=== PATIENT | female | born 1940 | race Caucasian/White ===

== ENCOUNTER 2016-07-22 07:21 | Inpatient (IN) | payer MEDICARE, OTHER ==
[2016-07-09 10:15] VITALS: BP 146/67
[~2016-07-22] VITALS: Ht 165.1 cm; Wt 73.0 kg
[~2016-07-22 07:21] MED LIST: /PANT40TA; ACIP20TA5 PO; AMOX500T PO; CARA1SUS; CLIMARA; COUM2.5T11 PO; GAVISUS2 PO; HYDR12.55 PO; HYDR25TA6; LOPR50TA; LOSA100T36 PO; METO10TA2; METO5TAB2; NUCY50TA9 PO; PROT20TA11; REGL10TA6 PO; SUCR1SS PO; TYLE325T5 PO; VAGI10TA VA; VAGIFEM PV; VERA180C PO; VITA200015 PO; [UNRECOGNIZED DRUG - CODE] TD; [UNRECOGNIZED DRUG - OTHER]
[2016-07-22] MEDS ORDERED: LR 1,000 ML IV SCH ×4 (08:15→11:30)
[2016-07-22] MEDS ORDERED: fentaNYL 100 MCG/2 ML INJECTION (J3010) As Ordered ONE ×3 (08:41→10:01)
[2016-07-22] MEDS ORDERED: MIDAZOLAM INJ 2 MG/2 ML VIAL (J2250) As Ordered ONE ×2 (08:41→10:02)
[2016-07-22] MEDS: MIDAZOLAM INJ 2 MG/2 ML VIAL (J2250) IV PRN ×2 (09:01→09:03)
[2016-07-22] MEDS ORDERED: BUPIVACAINE HCL 0.25% 30 ML VIAL As Ordered ONE (09:17)
[2016-07-22] MEDS ORDERED: ceFAZolin 1GM INJ (J0690) As Ordered ONE (09:17)
[2016-07-22] MEDS ORDERED: TRANEXAMIC ACID 100 MG/ML 10ML VIAL As Ordered ONE (09:17)
[2016-07-22] MEDS ORDERED: BUPIVACAINE HCL 0.5% 10 ML VIAL As Ordered ONE (09:17)
[2016-07-22] MEDS ORDERED: EPINEPHrine INJ 1 MG/ML 1ML VIAL/AMP As Ordered ONE (09:18)
[2016-07-22] MEDS ORDERED: fentaNYL 100 MCG/2 ML INJECTION (J3010) IV PRN ×2 (09:30→11:30)
[2016-07-22] MEDS ORDERED: PROPOFOL 200 MG/20 ML VIAL As Ordered ONE ×2 (10:01→10:02)
[2016-07-22] MEDS ORDERED: LIDOCAINE 2% INJ 100 MG/5 ML SDV (FOR ANES.) As Ordered ONE (10:02)
[2016-07-22] MEDS ORDERED: ceFAZolin 1GM INJ (J0690) IR ONE (10:11)
[2016-07-22] MEDS ORDERED: fentaNYL 100 MCG/2 ML INJECTION (J3010) XX ONE (10:11)
[2016-07-22] MEDS ORDERED: BUPIVACAINE HCL 0.25% 30 ML VIAL XX ONE (10:11)
[2016-07-22] MEDS ORDERED: TRANEXAMIC ACID 100 MG/ML 10ML VIAL XX ONE (10:11)
[2016-07-22] MEDS ORDERED: BUPIVACAINE HCL 0.5% 10 ML VIAL XX ONE (10:11)
[2016-07-22] MEDS ORDERED: EPINEPHrine INJ 1 MG/ML 1ML VIAL/AMP XX ONE (10:11)
[2016-07-22] MEDS ORDERED: ePHEDrine SULFATE 25 MG/5 ML(5MG/ML) SYRINGE As Ordered ONE (10:20)
[2016-07-22] MEDS ORDERED: LIDOCAINE 1% MDV 20ML VIAL ONE (10:48)
[2016-07-22] MEDS ORDERED: MEPIVACAINE HCL 1.5% 30 ML VIAL (J0670) ONE (10:48)
[2016-07-22] MEDS ORDERED: dexameTHASONE 10 MG/1 ML VIAL PRES.FREE (J1100) ONE (10:48)
[2016-07-22] MEDS ORDERED: ROPIvacaine 0.5% 30 ML INJECTION (J2795) ONE (10:48)
[2016-07-22] MEDS ORDERED: MORPHINE PCA 1MG/ML 100ML CADD As Ordered ONE (11:23)
[2016-07-22] MEDS ORDERED: PATIENT IS CURRENTLY ON AN ON-Q PAIN BUSTER PAIN RELIEF SYSTEM XX SCH (11:30)
[2016-07-22] MEDS ORDERED: MORPHINE PCA 1MG/ML 100ML CADD IV PRN (11:30)
[2016-07-22] MEDS ORDERED: D5W/0.45% SODIUM CHLORIDE 500 ML IV SCH (11:30)
[2016-07-22] MEDS ORDERED: PERCOCET 5MG/325MG TAB PO PRN (11:30)
[2016-07-22] MEDS ORDERED: NALBUPHINE HCL 10 MG/ML AMP (J2300) IV PRN (11:30)
[2016-07-22] MEDS ORDERED: EPIDURAL/PCA KEYS XX PRN (11:30)
[2016-07-22] MEDS ORDERED: METOCLOPRAMIDE INJ 10MG/2ML VIAL (J2765) IV PRN (11:30)
[2016-07-22] MEDS ORDERED: diphenhydrAMINE INJ 50MG/ML VIAL (J1200) IV PRN (11:30)
[2016-07-22] MEDS ORDERED: ONDANSETRON 4MG/2ML VIAL (J2405) IV PRN ×2 (11:30)
[2016-07-22] MEDS ORDERED: NALOXONE INJ 0.4 MG/1 ML VIAL (J2310) IV PRN (11:30)
[2016-07-22] MEDS ORDERED: ACETAMINOPHEN TAB 650MG DOSE (2X325MG) PO PRN (11:45)
[2016-07-22] MEDS ORDERED: FLEET ENEMA PR PRN (11:45)
[2016-07-22 14:30] VITALS: BP 163/74
[2016-07-22] MEDS: D5W/0.45% SODIUM CHLORIDE 1,000 ML IV SCH ×2 (15:46→23:36)
--- NOTE | 2016-07-22 17:04 | HPEPDOC ---
Medical History and Physical Date of Admission Jul 22, 2016 at 07:21 History and Physical HOSPITALIST CONSULT NOTE Date of consult: 07/22/2016 Referring Provider: Dr. Khanna Reason for Consult: Management of chronic medical conditions HPI: 75y/o female with hypertension, GERD, IBS who underwent right total knee replacement with Dr. Khanna today. We have been asked to see the patient for management of her chronic medical conditions. The patient was seen on fifth floor [place] after her surgery. She states she is feeling well and has no complaints. She does note, that on a prior surgery, she had a lot of GI issues afterwards, and her primary doctor suggested she start taking Reglan prior to the surgery. She states that she would like to continue the Reglan at this time , and is not currently experiencing any GI upset like her last surgery. 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 She lives with her , and has never smoked. She states that she drinks approximately 1 alcoholic drink a week. Allergies: Alendronate, esomeprazole, lansoprazole, lisinopril, opiates, omeprazole, ranitidine, isradipine Review of systems: General: Negative for fever and chills Eyes:. Negative for Vision changes and ocular discharge ENT: Negative for sore throat and nose bleed Cardiovascular: Negative for chest pain and palpitations Respiratory: Negative for cough and shortness of breath GI: Negative for nausea and vomiting. Positive for chronic alternation between diarrhea and constipation secondary to her IBS. She states that this is currently at her baseline. Musculoskeletal: Positive for chronic back pain Skin: Negative for rash Neuro: Negative for headache, dizziness, numbness, tingling Psych: Negative for depression and suicidal ideation Endocrine: Negative for polyuria : Negative for dysuria Heme: Negative for bruising and bleeding Home meds: See below Physical exam: Vital signs: Blood pressure 163/74, HR 72, temperature 97.9, O2 sat 95% on room air, RR 18 Gen.: awake, alert, no acute distress Eyes: Extraocular movements intact, normal sclera ENT: Moist mucous membranes Cardiovascular: RRR, no murmurs rubs or gallops Lungs: clear to auscultation bilaterally, no rales, rhonchi, or wheeze Abdomen: Soft, NT/ND, normal BS Extremities: No peripheral edema, pedal pulses intact bilat Neuro: alert and oriented 3, normal speech, no focal deficits Psych: Normal mood with congruent affect Labs and radiology: none to review Assessment and plan: 75y/o female with hypertension, GERD, IBS who underwent right total knee replacement with Dr. Khanna today. We have been asked to see the patient for management of her chronic medical conditions. 1. Osteoarthritis: Patient underwent right total knee replacement today. Management will be per Dr. Khanna. 2. Hypertension: We will resume the patient's home losartan, verapamil, and hydrochlorothiazide. 3. GERD: The patient states that at baseline, the only medicine she takes regularly is AcipHex. We will resume her home AcipHex and allow her to take her home supply as this is not formulary. The patient states that she only takes the Carafate when her GERD is flaring up, and she does not feel that she currently needs it. She does state though, that she has been taking Reglan 5 mg twice a day in anticipation of the surgery, and would like to continue that at this time. DVT prophylaxis: As per the primary team Thank you for this consult. We will continue to follow along with you. Dr. Sanders will assume care of this patient tomorrow. Vital Signs see above Home Medications Scheduled (Gaviscon Extra Strength R 508-475 mg/10Ml) 1 Katerina Katerina 1 TBS PO PRN Amoxicillin (Amoxicillin) 500 Mg Tab 2,000 MG PO PRN Cholecalciferol (Vitamin D) 2,000 Unit Tab 14,000 UNIT PO QWEEK Estradiol (Climara) 0.1 Mg/24 Hr Dis 0.2 MG TD QWEEK Estradiol Hemihydrate (Vagifem) 10 Mcg Tab 10 MCG VA Q2D Hydrochlorothiazide (Hydrochlorothiazide) 12.5 Mg Tab 12.5 MG PO DAILY Losartan Potassium (Losartan Potassium) 100 Mg Tab 100 MG PO QHS Metoclopramide HCl (Reglan) 10 Mg Tab 10 MG PO DAILY Rabeprazole Sodium (Aciphex) 20 Mg Tab 20 MG PO DAILY Sucralfate (Carafate) 1 Gm/10 Ml Katerina 2 TBS PO ACP Verapamil HCl (Verapamil HCl ER) 180 Mg Cap 180 MG PO BID Scheduled PRN Acetaminophen (Tylenol) 325 Mg Tab 650 MG PO Q4HP PRN PRN MILD PAIN or TEMP > 100.4 Allergies Coded Allergies: Lisinopril (Verified Allergy, Severe, angioedema and chest pain, 07/09/16) Alendronate (Verified Allergy, Unknown, 10/12/12) Esomeprazole (Verified Allergy, Unknown, 10/12/12) Isradipine (Verified Allergy, Unknown, 10/12/12) Lansoprazole (Verified Allergy, Unknown, ZEGERID TOO, 10/12/12) Omeprazole (Verified Allergy, Unknown, 10/12/12) Ranitidine (Verified Allergy, Unknown, 10/12/12) Uncoded Allergies: OPIATES (Allergy, Mild, 07/09/16) MG ESCOBAR Jul 22, 2016 17:04
[2016-07-22] MEDS ORDERED: SUCRALFATE 1 GM TAB PO SCH (17:30)
[2016-07-22 18:00] VITALS: BP 172/78
--- NOTE | 2016-07-22 18:49 | RO ---
DATE OF PROCEDURE: 07/22/2016 PREOPERATIVE DIAGNOSIS: Right knee osteoarthritis. POSTOPERATIVE DIAGNOSIS: Right knee osteoarthritis. OPERATION PERFORMED: Right total knee replacement. SURGEON: Dr. Ramesh Khanna ACCOUNTS RECEIVABLE PROCESSOR: RUTH Bateman HISTORY: A 75-year-old female who has had her left knee done, now with increasing pain in her right knee, for elective total knee replacement. FINDINGS AT SURGERY: Severe osteoarthritis, most involved were deep grooves in the patellofemoral joint. At surgery, a #3 PFC knee, a #3 tibia, a 10 mm spacer fixed bearing and a 32 mm button were replaced. Tourniquet time was 46 minutes. No intraoperative complications noted. Mr. Mary assisted by retracting vital structures and manipulating the leg to expedite the procedure. DESCRIPTION OF PROCEDURE: After adequate spinal anesthesia, a Bello catheter placed, IV antibiotics were administered and the right leg prepped and draped. Tourniquet inflated to 275 mmHg. An anterior incision made, median parapatellar arthrotomy was fashioned and osteophytes removed and the knee exposed. The intermedullary canal was opened. A 5 degree valgus 10 mm cut made off the distal femur by Mr. Mary under my supervision. I made the rest of the femoral cuts and osteophytes were removed and the tibia was exposed. The tibial cut made 4 mm off the medial side. Then menisci were excised. There were no posterior osteophytes to deal with. The posterior cruciate was in good shape and a 10 mm sizing guide showed good fit flexion/extension. Following this, the patella was everted and cut. Rotation checked and marked with the components. The femoral drill holes were applied. No lateral release was necessary. The tibial preparation was completed. Mr. Mary excused to the back table to mix methylmethacrylate under vacuum while I thoroughly irrigated the bone and dried it in preparation for cementing. The components were then malleted into place. Excess cement was removed, and the tibial component snapped into place. The knee placed in full extension while the patella was clamped. Then the knee once again thoroughly irrigated. TXA was instilled into the wound. A PainBuster catheter was threaded into the knee superolaterally. Then, the median parapatellar arthrotomy closed with heavy PDS suture. Tenosynovium closed with #2-0 PDS. [place] for skin. Dry dressing applied. Tourniquet deflated at 46 minutes. No intraoperative complications noted. The patient transported to the recovery room.
[2016-07-22] MEDS: VERAPAMIL 180 MG SR TAB PO SCH (20:21)
[2016-07-22] MEDS: LOSARTAN 50 MG TAB PO SCH (20:22)
[2016-07-22] MEDS: METOCLOPRAMIDE 10 MG TAB PO SCH (20:22)
[2016-07-22] MEDS ORDERED: WARFARIN SOD 5 MG TAB PO ONE (21:00)
[2016-07-22 22:00] VITALS: BP 162/77
[2016-07-23 02:00] VITALS: BP 136/74
[2016-07-23 06:00] VITALS: BP 140/66
[2016-07-23] MEDS: ACETAMINOPH W/CODEINE #3 TAB UD PO PRN ×3 (06:44→17:51)
[2016-07-23] MEDS: ONDANSETRON 4 MG TAB (S0181) PO PRN ×2 (06:44→12:17)
[2016-07-23 06:57] LABS: INR 2.13
[2016-07-23 07:05] LABS: BASO % 0.1 % (0.0-1.0); LARGE UNSTAINED CELL # 0.1 K/mm3 (0.0-0.4); LYMPH # 1.2 K/mm3 (1.5-4.5); LYMPH % 8.7 % (24.0-44.0); MEAN CORPUSCULAR HEMOGLOBIN 30.9 pg (27.0-33.0); MEAN CORPUSCULAR HGB CONC 33.3 g/dl (32.0-36.5); MEAN CORPUSCULAR VOLUME 92.8 fl (80.0-96.0); MONO # 0.6 K/mm3 (0.0-0.8); MONO % 4.1 % (0.0-5.0); NEUTROPHILS % 86.2 % (36.0-66.0); PLATELET COUNT, AUTOMATED 295 k/mm3 (150-450); RED CELL DISTRIBUTION WIDTH 12.5 % (11.5-14.5)
[2016-07-23 07:14] LABS: ANION GAP 10 MEQ/L (8-16); BLOOD UREA NITROGEN 9 MG/DL (7-18); CALCIUM LEVEL 8.6 MG/DL (8.8-10.2); CARBON DIOXIDE LEVEL 26 MEQ/L (21-32); CHLORIDE LEVEL 103 MEQ/L (98-107); CREATININE FOR GFR 0.63 MG/DL (0.55-1.02); GLOMERULAR FILTRATION RATE > 60.0 (>39); GLUCOSE, FASTING 136 MG/DL (83-110); MAGNESIUM LEVEL 1.8 MG/DL (1.8-2.4); POTASSIUM SERUM 4.2 MEQ/L (3.5-5.1); SODIUM LEVEL 139 MEQ/L (136-145)
[2016-07-23] MEDS ORDERED: METOCLOPRAMIDE 10 MG TAB PO SCH (09:00)
[2016-07-23] MEDS: MOM 30ML SUSPENSION UDC PO SCH (09:17)
--- NOTE | 2016-07-23 09:17 | REP ---
Clinical: Status post arthroplasty. Technique: AP and cross-table lateral views. Findings: The patient is status post right knee replacement with normal positioning and appearance to the femoral and tibial components. Overlying postsurgical changes appreciated. Impression: Satisfactory right knee replacement radiographs. Signed by Carlos Bansal MD 07/23/2016 09:09 A
[2016-07-23] MEDS: MIRALAX *UNIT DOSE* 17GM PACKET PO SCH (09:18)
[2016-07-23] MEDS: VERAPAMIL 180 MG SR TAB PO SCH ×2 (09:18→20:55)
[2016-07-23] MEDS: METOCLOPRAMIDE 10 MG TAB PO SCH ×2 (09:18→20:54)
[2016-07-23] MEDS: SENOKOT S TAB PO SCH ×2 (09:19→20:54)
[2016-07-23] MEDS: RABEPRAZOLE 20 MG PO SCH (09:19)
[2016-07-23] MEDS: hydroCHLOROthiazide 12.5 MG CAPSULE PO SCH (09:19)
[2016-07-23 14:00] VITALS: BP 153/67
--- NOTE | 2016-07-23 16:43 | IPNPDOC ---
Text Note Date of Service The patient was seen on 07/23/16 at 16:38. NOTE Subjective: Patient stat denies any complaints. Denies chest pain/shortness of breath/palpitations. Es Objective: Vitals: (see below) General: No acute distress, laying comfortably in bed. HEENT: Moist mucous membranes. Neck: No JVD or lymphadenopathy Cardiac: RRR, No murmurs Pulm: Clear to auscultation b/l. No wheezing, rhonchi Abd: NT/ND + BS Ext: No cyanosis. Right knee wrapped, with distal pulses intact. Minimal edema. No hemorrhage. Labs (see below) Images: X-ray of right knee 07/22/16 Impression: Satisfactory right knee replacement radiographs. Assessment/Plan 1. Severe osteoarthritis status post right total knee replacement on 07/22/[address] Khanna. Pain management and DVT prophylaxis per Dr. Khanna. 2. Hypertension- controlled, continue home meds. 3. GERD- cont home meds. DVT prophy: Per orthopedics VS,Marshal, I+O VS, Marshal, I+O Laboratory Tests 07/23/16 06:08 Calcium Level 8.6 L, Red Blood Count 3.79 L, Mean Corpuscular Volume 92.8, Mean Corpuscular Hemoglobin 30.9, Mean Corpuscular Hemoglobin Concent 33.3, Red Cell Distribution Width 12.5, Neutrophils (%) (Auto) 86.2 H, Lymphocytes (%) (Auto) 8.7 L, Monocytes (%) (Auto) 4.1, Eosinophils (%) (Auto) 0.0, Basophils (%) (Auto ) 0.1, Neutrophils # (Auto) 12.0 H, Lymphocytes # (Auto) 1.2 L, Monocytes # ( Auto) 0.6, Eosinophils # (Auto) 0.0, Basophils # (Auto) 0.0 Vital Signs Date Time Temp Pulse Resp B/P Pulse Ox O2 Delivery O2 Flow Rate FiO2 07/23/16 14:00 98.1 73 18 153/67 92 Room Air 07/23/16 05:26 2.0 I&O- Last 24 Hours up to 6 AM 07/23/16 06:00 Intake Total 1260 ml Output Total 3750 ml Balance -2490 ml JOSR FOFANA MD Jul 23, 2016 16:43
[2016-07-23] MEDS ORDERED: WARFARIN SOD 5 MG TAB PO ONE (17:00)
[2016-07-23] MEDS: LOSARTAN 50 MG TAB PO SCH (20:53)
[2016-07-23 22:00] VITALS: BP 186/79
[2016-07-24] MEDS: ACETAMINOPH W/CODEINE #3 TAB UD PO PRN ×4 (03:04→21:06)
[2016-07-24 06:00] VITALS: BP 164/77
[2016-07-24 06:43] LABS: BASO % 0.2 % (0.0-1.0); EOS # 0.1 K/mm3 (0.0-0.50); EOS % 0.7 % (0.0-3.0); LARGE UNSTAINED CELL # 0.2 K/mm3 (0.0-0.4); LARGE UNSTAINED CELL % 1.7 % (0.0-4.0); LYMPH # 2.4 K/mm3 (1.5-4.5); LYMPH % 21.9 % (24.0-44.0); MEAN CORPUSCULAR HEMOGLOBIN 30.9 pg (27.0-33.0); MEAN CORPUSCULAR HGB CONC 33.8 g/dl (32.0-36.5); MEAN CORPUSCULAR VOLUME 91.4 fl (80.0-96.0); MONO # 0.6 K/mm3 (0.0-0.8); MONO % 5.7 % (0.0-5.0); NEUTROPHILS # 7.7 K/mm3 (1.8-7.7); NEUTROPHILS % 69.8 % (36.0-66.0); PLATELET COUNT, AUTOMATED 264 k/mm3 (150-450); RED CELL DISTRIBUTION WIDTH 12.6 % (11.5-14.5); WHITE BLOOD COUNT 11.1 K/mm3 (4.0-10.0)
[2016-07-24 06:49] LABS: INR 2.54
[2016-07-24 06:53] LABS: ANION GAP 8 MEQ/L (8-16); BLOOD UREA NITROGEN 15 MG/DL (7-18); CALCIUM LEVEL 8.3 MG/DL (8.8-10.2); CARBON DIOXIDE LEVEL 28 MEQ/L (21-32); CHLORIDE LEVEL 104 MEQ/L (98-107); CREATININE FOR GFR 0.56 MG/DL (0.55-1.02); GLOMERULAR FILTRATION RATE > 60.0 (>39); GLUCOSE, FASTING 90 MG/DL (83-110); POTASSIUM SERUM 3.8 MEQ/L (3.5-5.1); SODIUM LEVEL 140 MEQ/L (136-145)
[2016-07-24] MEDS: MIRALAX *UNIT DOSE* 17GM PACKET PO SCH (09:00)
[2016-07-24] MEDS: MOM 30ML SUSPENSION UDC PO SCH (09:41)
[2016-07-24] MEDS: SENOKOT S TAB PO SCH ×2 (09:44→21:00)
[2016-07-24] MEDS: VERAPAMIL 180 MG SR TAB PO SCH ×2 (09:44→21:09)
[2016-07-24] MEDS: hydroCHLOROthiazide 12.5 MG CAPSULE PO SCH (09:44)
[2016-07-24] MEDS: RABEPRAZOLE 20 MG PO SCH (09:45)
[2016-07-24] MEDS: METOCLOPRAMIDE 10 MG TAB PO SCH ×2 (09:45→21:09)
[2016-07-24 14:00] VITALS: BP 114/54
--- NOTE | 2016-07-24 17:15 | IPNPDOC ---
Text Note Date of Service The patient was seen on 07/24/16 at 17:15. NOTE Subjective: Patient denies any complaints. Es Objective: Vitals: (see below) General: No acute distress, laying comfortably in bed. HEENT: Moist mucous membranes. Neck: No JVD or lymphadenopathy Cardiac: RRR, No murmurs Pulm: Clear to auscultation b/l. No wheezing, rhonchi Abd: NT/ND + BS Ext: No cyanosis. Right knee wrapped, with distal pulses intact. Minimal edema. No hemorrhage. Labs (see below) Images: X-ray of right knee 07/22/16 Impression: Satisfactory right knee replacement radiographs. Assessment/Plan 1. Severe Osteoarthritis status post right total knee replacement on 07/22/[address] Khanna. Pain management and DVT prophylaxis per Dr. Khanna. 2. Hypertension- uncontrolled, continue home meds. Hydralazine added 3. GERD- cont home meds. DVT prophy: Per orthopedics VS,Fishbone, I+O VS, Fishbone, I+O Laboratory Tests 07/24/16 06:07 Calcium Level 8.3 L, Red Blood Count 3.43 L, Mean Corpuscular Volume 91.4, Mean Corpuscular Hemoglobin 30.9, Mean Corpuscular Hemoglobin Concent 33.8, Red Cell Distribution Width 12.6, Neutrophils (%) (Auto) 69.8 H, Lymphocytes (%) (Auto) 21.9 L, Monocytes (%) (Auto) 5.7 H, Eosinophils (%) (Auto) 0.7, Basophils (%) ( Auto) 0.2, Neutrophils # (Auto) 7.7, Lymphocytes # (Auto) 2.4, Monocytes # (Auto ) 0.6, Eosinophils # (Auto) 0.1, Basophils # (Auto) 0.0 Vital Signs Date Time Temp Pulse Resp B/P Pulse Ox O2 Delivery O2 Flow Rate FiO2 07/24/16 14:43 18 98 07/24/16 14:00 99.6 68 114/54 Room Air 07/23/16 05:26 2.0 I&O- Last 24 Hours up to 6 AM 07/24/16 06:00 Intake Total 2030 ml Balance 2030 ml JOSR FOFANA MD Jul 24, 2016 17:15
[2016-07-24] MEDS: LOSARTAN 50 MG TAB PO SCH (21:10)
[2016-07-24] MEDS: **hydrALAZINE HCL** 25 MG TAB PO SCH (21:11)
[2016-07-24 22:00] VITALS: BP 136/60
[2016-07-25 06:00] VITALS: BP 126/59
[2016-07-25 06:58] LABS: BASO % 0.3 % (0.0-1.0); EOS # 0.2 K/mm3 (0.0-0.50); EOS % 1.6 % (0.0-3.0); LARGE UNSTAINED CELL # 0.2 K/mm3 (0.0-0.4); LARGE UNSTAINED CELL % 1.9 % (0.0-4.0); LYMPH # 2.8 K/mm3 (1.5-4.5); LYMPH % 24.4 % (24.0-44.0); MEAN CORPUSCULAR HEMOGLOBIN 30.3 pg (27.0-33.0); MEAN CORPUSCULAR HGB CONC 32.6 g/dl (32.0-36.5); MEAN CORPUSCULAR VOLUME 92.9 fl (80.0-96.0); MONO # 0.5 K/mm3 (0.0-0.8); MONO % 4.6 % (0.0-5.0); NEUTROPHILS # 7.7 K/mm3 (1.8-7.7); NEUTROPHILS % 67.1 % (36.0-66.0); PLATELET COUNT, AUTOMATED 291 k/mm3 (150-450); RED CELL DISTRIBUTION WIDTH 12.5 % (11.5-14.5); WHITE BLOOD COUNT 11.5 K/mm3 (4.0-10.0)
[2016-07-25 07:10] LABS: INR 1.68
[2016-07-25 07:27] LABS: ANION GAP 6 MEQ/L (8-16); BLOOD UREA NITROGEN 19 MG/DL (7-18); CALCIUM LEVEL 8.5 MG/DL (8.8-10.2); CARBON DIOXIDE LEVEL 32 MEQ/L (21-32); CHLORIDE LEVEL 101 MEQ/L (98-107); CREATININE FOR GFR 0.73 MG/DL (0.55-1.02); GLOMERULAR FILTRATION RATE > 60.0 (>39); GLUCOSE, FASTING 101 MG/DL (83-110); MAGNESIUM LEVEL 2.2 MG/DL (1.8-2.4); POTASSIUM SERUM 3.9 MEQ/L (3.5-5.1); SODIUM LEVEL 139 MEQ/L (136-145)
[2016-07-25] MEDS ORDERED: ACET30TAB PO (07:36)
[2016-07-25] MEDS: MIRALAX *UNIT DOSE* 17GM PACKET PO SCH (09:00)
[2016-07-25] MEDS: METOCLOPRAMIDE 10 MG TAB PO SCH (09:22)
[2016-07-25] MEDS: MOM 30ML SUSPENSION UDC PO SCH (09:22)
[2016-07-25] MEDS: **hydrALAZINE HCL** 25 MG TAB PO SCH (09:23)
[2016-07-25] MEDS: hydroCHLOROthiazide 12.5 MG CAPSULE PO SCH (09:25)
[2016-07-25] MEDS: ACETAMINOPH W/CODEINE #3 TAB UD PO PRN ×2 (09:25→14:28)
[2016-07-25] MEDS: SENOKOT S TAB PO SCH (09:25)
[2016-07-25 09:26] VITALS: BP 126/59
[2016-07-25] MEDS: VERAPAMIL 180 MG SR TAB PO SCH (09:26)
[2016-07-25] MEDS: RABEPRAZOLE 20 MG PO SCH (09:27)
[2016-07-25] MEDS ORDERED: HYDR25TA PO (10:52)
[2016-07-25 14:00] VITALS: BP 107/53
--- NOTE | 2016-07-25 17:21 | IPNPDOC ---
Text Note Date of Service The patient was seen on 07/25/16 at 17:19. NOTE Subjective: Patient denies any complaints. Would like to go home today. Objective: Vitals: (see below) General: No acute distress, laying comfortably in bed. HEENT: Moist mucous membranes. Neck: No JVD or lymphadenopathy Cardiac: RRR, No murmurs Pulm: Clear to auscultation b/l. No wheezing, rhonchi Abd: NT/ND + BS Ext: No cyanosis. Right knee with minimal swelling, with distal pulses intact. No hemorrhage. Labs (see below) Images: X-ray of right knee 07/22/16 Impression: Satisfactory right knee replacement radiographs. Assessment/Plan 1. Severe Osteoarthritis status post right total knee replacement on 07/22/[address] Khanna. Pain management and DVT prophylaxis per Dr. Khanna. 2. Hypertension- controlled, continue home meds. Hydralazine prescription sent to the pharmacy. Patient will check her blood pressure home, and if it appears to be low, she will only take her hydralazine once daily. She will also be following up with a primary care physician. 3. GERD- cont home meds. DVT prophy: Per orthopedics VS,Marshal, I+O VS, Marshal, I+O Laboratory Tests 07/25/16 06:34 Calcium Level 8.5 L, Red Blood Count 3.53 L, Mean Corpuscular Volume 92.9, Mean Corpuscular Hemoglobin 30.3, Mean Corpuscular Hemoglobin Concent 32.6, Red Cell Distribution Width 12.5, Neutrophils (%) (Auto) 67.1 H, Lymphocytes (%) (Auto) 24.4, Monocytes (%) (Auto) 4.6, Eosinophils (%) (Auto) 1.6, Basophils (%) (Auto ) 0.3, Neutrophils # (Auto) 7.7, Lymphocytes # (Auto) 2.8, Monocytes # (Auto) 0.5, Eosinophils # (Auto) 0.2, Basophils # (Auto) 0.0 Vital Signs Date Time Temp Pulse Resp B/P Pulse Ox O2 Delivery O2 Flow Rate FiO2 07/25/16 14:58 18 98 07/25/16 14:00 99.0 73 107/53 Room Air 07/23/16 05:26 2.0 I&O- Last 24 Hours up to 6 AM 07/25/16 06:00 Intake Total 720 ml Output Total 350 ml Balance 370 ml JOSR FOFANA MD Jul 25, 2016 17:21
== END 2016-07-25 15:10 | disposition home health service (06) | DRG 470 ==
LOC: M OR 07:21 → M MS5PR 14:30
PROVIDERS: ADMIT Orthopaedic Surgery; ATTEND Orthopaedic Surgery
PROC: 0SRC0J9 Replacement of Right Knee Joint with Synthetic Substitute, Cemented, Open Approach (ICD-10-PCS; principal; 2016-07-22 09:00)
DX: M17.11 Unilateral primary osteoarthritis, right knee (principal); I10 Essential (primary) hypertension; K21.9 Gastro-esophageal reflux disease without esophagitis; E55.9 Vitamin D deficiency, unspecified; K58.9 Irritable bowel syndrome, unspecified; E78.00 Pure hypercholesterolemia, unspecified; M81.0 Age-related osteoporosis without current pathological fracture; Z90.49 Acquired absence of other specified parts of digestive tract; Z96.653 Presence of artificial knee joint, bilateral; Z79.899 Other long term (current) drug therapy

== ENCOUNTER → 2016-07-31 | Outpatient (REF) | payer MEDICARE, OTHER ==
[~2016-07-31] MED LIST changes: +ACET30TAB PO; +HYDR25TA PO
== END ==
LOC: M SFHCPLAZ 08:31 → EEVIPCON 08:31
PROVIDERS: ATTEND Internal Medicine
DX: R30.0 Dysuria (principal)

== ENCOUNTER → 2016-08-05 | Outpatient (REF) | payer MEDICARE, OTHER ==
[2016-08-05 14:22] LABS: INR 1.66
== END ==
LOC: M LABDRAW1 12:58
PROVIDERS: ATTEND Orthopaedic Surgery
DX: Z47.1 Aftercare following joint replacement surgery (principal); Z79.01 Long term (current) use of anticoagulants

== ENCOUNTER → 2016-08-08 | Outpatient (REF) | payer MEDICARE, OTHER ==
[2016-08-08 18:07] LABS: INR 1.25
== END ==
LOC: M LAB REF 16:50
PROVIDERS: ATTEND Nurse Practitioner Family
DX: Z47.1 Aftercare following joint replacement surgery (principal); Z79.01 Long term (current) use of anticoagulants

== ENCOUNTER → 2016-08-12 | Outpatient (REF) | payer MEDICARE, OTHER ==
[2016-08-12 12:44] LABS: INR 2.18
== END ==
LOC: M LAB REF 11:46
PROVIDERS: ATTEND Nurse Practitioner Family
DX: Z47.1 Aftercare following joint replacement surgery (principal); Z79.01 Long term (current) use of anticoagulants

== ENCOUNTER → 2016-10-22 | Outpatient (CLI) | payer MEDICARE, OTHER ==
--- NOTE | 2016-10-22 10:47 | REPMRS ---
Patient History The patient states she had a clinical breast exam in 08/30 Patient is postmenopausal. Family history of breast cancer in niece at age 35. Benign excisional biopsy of the right breast, 1992. Taking estrogen for 14 years. Digital Woman Screen Mammo: October 22, 2016 - Exam #: [id number] Bilateral CC and MLO view(s) were taken. Technologist: Melissa Crowley, Technologist Prior study comparison: October 20, 2015, digital woman screen mammo performed at [facility]. October 14, 2014, digital woman screen mammo performed at [facility]. FINDINGS: The breast tissue is heterogeneously dense. This may lower the sensitivity of mammography. There has been no change in the appearance of the mammogram from the prior studies. There is a moderate amount of residual fibroglandular tissue which is fairly symmetric. There is no interval development of dominant mass, areas of architectural distortion, or clustered microcalcification typical of malignancy. ASSESSMENT: BI-RADS/ACR category 1 mammogram. Negative. Recommendation Routine screening mammogram in 1 year (for women over age 40). This mammogram was interpreted with the aid of an FDA-approved computer-aided dectection system. Electronically Signed By: Jeevan Yu MD 10/22/16 0792
== END ==
LOC: M WHC 09:31
PROVIDERS: ATTEND Obstetrics & Gynecology Gynecology
DX: Z12.31 Encounter for screening mammogram for malignant neoplasm of breast (principal)

== ENCOUNTER → 2016-12-17 | Outpatient (CLI) | payer MEDICARE, OTHER ==
[2016-12-17 09:19] LABS: MEAN CORPUSCULAR HEMOGLOBIN 29.8 pg (27.0-33.0); MEAN CORPUSCULAR VOLUME 90.3 fl (80.0-96.0); RED CELL DISTRIBUTION WIDTH 13.9 % (11.5-14.5); WHITE BLOOD COUNT 5.7 K/mm3 (4.0-10.0)
[2016-12-17 09:44] LABS: ALBUMIN 3.4 GM/DL (3.2-5.2); ALKALINE PHOSPHATASE 67 U/L (45-117); ALT/SGPT 17 U/L (12-78); ANION GAP 5 MEQ/L (8-16); AST/SGOT 14 U/L (15-37); BILIRUBIN,TOTAL 0.5 MG/DL (0.2-1.0); BLOOD UREA NITROGEN 15 MG/DL (7-18); CALCIUM LEVEL 9.1 MG/DL (8.8-10.2); CARBON DIOXIDE LEVEL 29 MEQ/L (21-32); CHLORIDE LEVEL 104 MEQ/L (98-107); CHOLESTEROL LEVEL 195 MG/DL (<200); CREATININE FOR GFR 0.68 MG/DL (0.55-1.02); GLOMERULAR FILTRATION RATE > 60.0 (>39); GLUCOSE, FASTING 86 MG/DL (83-110); POTASSIUM SERUM 4.4 MEQ/L (3.5-5.1); SODIUM LEVEL 138 MEQ/L (136-145); TOTAL PROTEIN 6.5 GM/DL (6.4-8.2); TRIGLYCERIDES LEVEL 152 MG/DL (<150)
== END ==
LOC: M LAB 09:00
PROVIDERS: ATTEND Internal Medicine
DX: K58.9 Irritable bowel syndrome, unspecified (principal); E78.00 Pure hypercholesterolemia, unspecified; I10 Essential (primary) hypertension

== ENCOUNTER → 2017-06-23 | Outpatient (CLI) | payer MEDICARE, OTHER ==
[~2017-06-23] MED LIST changes: +ACIP1TAB PO; -ACIP20TA5 PO; -COUM2.5T11 PO; +COUM2.5T17 PO; +NUCY50TA6 PO; -NUCY50TA9 PO
[2017-06-23 08:59] LABS: MEAN CORPUSCULAR HEMOGLOBIN 30.2 pg (27.0-33.0); MEAN CORPUSCULAR HGB CONC 33.5 g/dl (32.0-36.5); MEAN CORPUSCULAR VOLUME 90.2 fl (80.0-96.0); PLATELET COUNT, AUTOMATED 320 10^3/uL (150-450); RED CELL DISTRIBUTION WIDTH 14.3 % (11.5-14.5); WHITE BLOOD COUNT 5.4 10^3/uL (4.0-10.0)
[2017-06-23 09:36] LABS: ALBUMIN 3.7 GM/DL (3.2-5.2); ALBUMIN/GLOBULIN RATIO 1.09 (1.00-1.93); ALKALINE PHOSPHATASE 65 U/L (45-117); ALT/SGPT 18 U/L (12-78); ANION GAP 11 MEQ/L (8-16); AST/SGOT 20 U/L (7-37); BILIRUBIN,TOTAL 0.5 MG/DL (0.2-1.0); BLOOD UREA NITROGEN 18 MG/DL (7-18); CALCIUM LEVEL 9.1 MG/DL (8.8-10.2); CARBON DIOXIDE LEVEL 27 MEQ/L (21-32); CHLORIDE LEVEL 102 MEQ/L (98-107); CREATININE FOR GFR 0.78 MG/DL (0.55-1.02); GLOMERULAR FILTRATION RATE > 60.0 (>39); GLUCOSE, FASTING 90 MG/DL (83-110); MAGNESIUM LEVEL 1.7 MG/DL (1.8-2.4); POTASSIUM SERUM 3.5 MEQ/L (3.5-5.1); SODIUM LEVEL 140 MEQ/L (136-145); TOTAL PROTEIN 7.1 GM/DL (6.4-8.2)
== END ==
LOC: M LAB 08:39
PROVIDERS: ATTEND Internal Medicine
DX: Z86.39 Personal history of other endocrine, nutritional and metabolic disease (principal)

== ENCOUNTER → 2017-10-23 | Outpatient (CLI) | payer MEDICARE, OTHER | LOC: M WHC 09:20 | DX: Z12.31 Encounter for screening mammogram for malignant neoplasm of breast (principal); Z78.0 Asymptomatic menopausal state; M85.88 Other specified disorders of bone density and structure, other site; M85.851 Other specified disorders of bone density and structure, right thigh; M85.852 Other specified disorders of bone density and structure, left thigh | CPT/HCPCS: 77067 ==

== ENCOUNTER → 2018-02-09 | Outpatient (CLI) | payer MEDICARE, OTHER ==
[2018-02-09 09:31] LABS: HEMATOCRIT 38.3 % (36.0-47.0); MEAN CORPUSCULAR HEMOGLOBIN 31.1 pg (27.0-33.0); MEAN CORPUSCULAR HGB CONC 33.9 g/dl (32.0-36.5); MEAN CORPUSCULAR VOLUME 91.6 fl (80.0-96.0); PLATELET COUNT, AUTOMATED 243 10^3/uL (150-450); RED BLOOD COUNT 4.18 10^6/uL (4.00-5.40); RED CELL DISTRIBUTION WIDTH 14.1 % (11.5-14.5); WHITE BLOOD COUNT 5.5 10^3/uL (4.0-10.0)
[2018-02-09 09:53] LABS: ALBUMIN 3.5 GM/DL (3.2-5.2); ALBUMIN/GLOBULIN RATIO 1.06 (1.00-1.93); ALKALINE PHOSPHATASE 64 U/L (45-117); ALT/SGPT 22 U/L (12-78); ANION GAP 9 MEQ/L (8-16); AST/SGOT 20 U/L (7-37); BILIRUBIN,TOTAL 0.5 MG/DL (0.2-1.0); BLOOD UREA NITROGEN 20 MG/DL (7-18); CALCIUM LEVEL 8.9 MG/DL (8.8-10.2); CARBON DIOXIDE LEVEL 26 MEQ/L (21-32); CHLORIDE LEVEL 107 MEQ/L (98-107); CHOLESTEROL LEVEL 208 MG/DL (<200); CHOLESTEROL RISK RATIO 3.924 (<5); CREATININE FOR GFR 0.69 MG/DL (0.55-1.30); GLOMERULAR FILTRATION RATE > 60.0 (>39); GLUCOSE, FASTING 88 MG/DL (70-100); HDL CHOLESTEROL 53 MG/DL (>40); LDL CHOLESTEROL 106.6 MG/DL (<100); MAGNESIUM LEVEL 1.8 MG/DL (1.8-2.4); NON-HDL-C 155 MG/DL; POTASSIUM SERUM 3.8 MEQ/L (3.5-5.1); SODIUM LEVEL 142 MEQ/L (136-145); TOTAL PROTEIN 6.8 GM/DL (6.4-8.2); TRIGLYCERIDES LEVEL 242 MG/DL (<150)
[2018-02-09 09:58] LABS: TOTAL 25(OH) VITAMIN D 22.9 NG/ML (30.0-100.0)
== END ==
LOC: M LAB 08:58
DX: I10 Essential (primary) hypertension (principal); Z86.39 Personal history of other endocrine, nutritional and metabolic disease; E78.00 Pure hypercholesterolemia, unspecified; E55.9 Vitamin D deficiency, unspecified
CPT/HCPCS: 83735

== ENCOUNTER → 2018-08-03 | Outpatient (CLI) | payer MEDICARE, OTHER ==
[~2018-08-03] MED LIST changes: -LOSA100T36 PO; +LOSA100T50 PO; +NUCY50TA19 PO; -NUCY50TA6 PO
[2018-08-03 10:11] LABS: HEMATOCRIT 38.6 % (36.0-47.0); MEAN CORPUSCULAR HEMOGLOBIN 31.1 pg (27.0-33.0); MEAN CORPUSCULAR HGB CONC 33.7 g/dl (32.0-36.5); MEAN CORPUSCULAR VOLUME 92.3 fl (80.0-96.0); PLATELET COUNT, AUTOMATED 282 10^3/uL (150-450); RED BLOOD COUNT 4.18 10^6/uL (4.00-5.40); WHITE BLOOD COUNT 6.2 10^3/uL (4.0-10.0)
[2018-08-03 10:43] LABS: ALBUMIN 3.4 GM/DL (3.2-5.2); ALT/SGPT 15 U/L (12-78); BILIRUBIN,TOTAL 0.5 MG/DL (0.2-1.0); BLOOD UREA NITROGEN 15 MG/DL (7-18); CALCIUM LEVEL 8.9 MG/DL (8.8-10.2); CARBON DIOXIDE LEVEL 28 MEQ/L (21-32); CHLORIDE LEVEL 106 MEQ/L (98-107); CHOLESTEROL LEVEL 199 MG/DL (<200); CREATININE FOR GFR 0.59 MG/DL (0.55-1.30); GLOMERULAR FILTRATION RATE > 60.0 (>39); GLUCOSE, FASTING 80 MG/DL (70-100); HDL CHOLESTEROL 50 MG/DL (>40); LDL CHOLESTEROL 107 MG/DL (<100); MAGNESIUM LEVEL 1.9 MG/DL (1.8-2.4); NON-HDL-C 149 MG/DL; POTASSIUM SERUM 3.9 MEQ/L (3.5-5.1); SODIUM LEVEL 139 MEQ/L (136-145); TOTAL PROTEIN 6.4 GM/DL (6.4-8.2); TRIGLYCERIDES LEVEL 210 MG/DL (<150)
[2018-08-03 10:50] LABS: TOTAL 25(OH) VITAMIN D 29.6 NG/ML (30.0-100.0)
== END ==
LOC: M LAB 09:25
PROVIDERS: ATTEND Internal Medicine
DX: Z86.39 Personal history of other endocrine, nutritional and metabolic disease (principal); Z79.899 Other long term (current) drug therapy

== ENCOUNTER → 2018-11-24 | Outpatient (CLI) | payer MEDICARE, OTHER ==
[~2018-11-24] MED LIST changes: -/PANT40TA; +ACET-716 PO; -ACET30TAB PO; +PROT1TAB2; +[UNRECOGNIZED DRUG - CODE]; -[UNRECOGNIZED DRUG - OTHER]
--- NOTE | 2018-11-24 13:18 | REPMRS ---
Patient History The patient states she had a clinical breast exam in 10/2018. Patient is postmenopausal. Family history of breast cancer at age 35 in niece. Benign excisional biopsy of the right breast, 1992. Taking estrogen for 16 years. Digital Woman Screen Mammo: November 24, 2018 - Exam #: [id number] Bilateral CC and MLO view(s) were taken. Technologist: Melissa Crowley, Technologist Prior study comparison: October 23, 2017, digital woman screen mammo performed at [facility]. October 22, 2016, digital woman screen mammo performed at [facility]. October 20, 2015, digital woman screen mammo performed at [facility]. FINDINGS: The breast tissue is heterogeneously dense. This may lower the sensitivity of mammography. Dilated retroareolar ducts are again seen bilaterally unchanged. There is a moderate amount of heterogeneously dense fibroglandular tissue which is fairly symmetric. There is no interval development of dominant mass, architectural distortion, or clustered microcalcification typical of malignancy. There has been no change in the appearance of the mammogram from the prior studies. 3-D tomosynthesis shows no additional findings. Assessment: BI-RADS/ACR category 2 mammogram. Benign Findings. Recommendation Routine screening mammogram of both breasts in 1 year (for women over age 40). This patient's Lifetime Breast Cancer RIsk is estimated at 1.9 %. This mammogram was interpreted with the aid of an FDA-approved computer-aided dectection system. Electronically Signed By: Obinna Heaton MD 11/24/18 [id number]
== END ==
LOC: M WHC 12:48
PROVIDERS: ATTEND Internal Medicine
DX: Z12.31 Encounter for screening mammogram for malignant neoplasm of breast (principal); Z78.0 Asymptomatic menopausal state; Z79.890 Hormone replacement therapy

== ENCOUNTER → 2019-02-05 | Outpatient (CLI) | payer MEDICARE, OTHER ==
[2019-02-05 09:47] LABS: HEMATOCRIT 38.6 % (36.0-47.0); MEAN CORPUSCULAR HEMOGLOBIN 31.9 pg (27.0-33.0); MEAN CORPUSCULAR HGB CONC 33.7 g/dl (32.0-36.5); MEAN CORPUSCULAR VOLUME 94.8 fl (80.0-96.0); PLATELET COUNT, AUTOMATED 302 10^3/uL (150-450); RED BLOOD COUNT 4.07 10^6/uL (4.00-5.40); WHITE BLOOD COUNT 8.7 10^3/uL (4.0-10.0)
[2019-02-05 10:28] LABS: ALBUMIN 3.6 GM/DL (3.2-5.2); ALT/SGPT 16 U/L (12-78); BILIRUBIN,TOTAL 0.4 MG/DL (0.2-1.0); BLOOD UREA NITROGEN 19 MG/DL (7-18); CALCIUM LEVEL 9.4 MG/DL (8.8-10.2); CARBON DIOXIDE LEVEL 30 MEQ/L (21-32); CHLORIDE LEVEL 103 MEQ/L (98-107); CHOLESTEROL LEVEL 195 MG/DL (<200); CHOLESTEROL RISK RATIO 3.196 (<5); CREATININE FOR GFR 0.65 MG/DL (0.55-1.30); GLOMERULAR FILTRATION RATE > 60.0 (>39); GLUCOSE, FASTING 88 MG/DL (70-100); HDL CHOLESTEROL 61 MG/DL (>40); LDL CHOLESTEROL 108 MG/DL (<100); MAGNESIUM LEVEL 1.9 MG/DL (1.8-2.4); NON-HDL-C 134 MG/DL; POTASSIUM SERUM 4.3 MEQ/L (3.5-5.1); SODIUM LEVEL 140 MEQ/L (136-145); TOTAL PROTEIN 6.7 GM/DL (6.4-8.2); TRIGLYCERIDES LEVEL 128 MG/DL (<150)
== END ==
LOC: M LAB 08:49
PROVIDERS: ATTEND Internal Medicine
DX: E78.00 Pure hypercholesterolemia, unspecified (principal); I10 Essential (primary) hypertension; Z86.39 Personal history of other endocrine, nutritional and metabolic disease

== ENCOUNTER → 2019-05-06 | Outpatient (CLI) | payer MEDICARE, OTHER ==
--- NOTE | 2019-05-06 16:43 | REP ---
MRI LEFT FOOT: TECHNIQUE: Multiple sequences obtained in the axial, coronal and sagittal planes. Osseous structures are intact with no bone marrow edema or occult fracture. Achilles tendon is intact. In the region of the posterior plantar tendon medially there is mixed low signal on T1 and T2 with focal thickening of the tendon. The area involved measures about 1.5 x 2.6 x 1.9 cm. This is most consistent with focal fibromatosis. No other abnormalities seen in the plantar soft tissues. No ganglion cyst is seen. Small diffuse effusion is seen along the tibiotalar joint and talocalcaneal joint anteriorly and posteriorly. Tendons and ligaments at the ankle appear intact. Ankle mortise is anatomic with no osteochondral lesion. IMPRESSION: Focal nodular thickening in the region of the posterior plantar tendon medially as discussed above, most consistent with focal fibromatosis. Electronically Signed by Jeevan Yu MD 05/08/2019 11:01 A
== END ==
LOC: M RAD 12:56
PROVIDERS: ATTEND Physician Assistant
DX: M72.2 Plantar fascial fibromatosis (principal)

== ENCOUNTER → 2019-08-09 | Outpatient (CLI) | payer MEDICARE, OTHER ==
[2019-08-09 10:45] LABS: ALBUMIN 3.7 GM/DL (3.2-5.2); ALT/SGPT 15 U/L (12-78); BILIRUBIN,TOTAL 0.5 MG/DL (0.2-1.0); BLOOD UREA NITROGEN 16 MG/DL (7-18); CALCIUM LEVEL 9.3 MG/DL (8.8-10.2); CARBON DIOXIDE LEVEL 27 MEQ/L (21-32); CHLORIDE LEVEL 106 MEQ/L (98-107); CREATININE FOR GFR 0.57 MG/DL (0.55-1.30); GLOMERULAR FILTRATION RATE > 60.0 (>39); GLUCOSE, FASTING 80 MG/DL (70-100); MAGNESIUM LEVEL 1.8 MG/DL (1.8-2.4); POTASSIUM SERUM 4.3 MEQ/L (3.5-5.1); SODIUM LEVEL 140 MEQ/L (136-145); TOTAL PROTEIN 6.6 GM/DL (6.4-8.2)
[2019-08-09 10:59] LABS: TOTAL 25(OH) VITAMIN D 37.3 NG/ML (30.0-100.0)
[2019-08-11 11:11] LABS: VITAMIN B12 LEVEL 284 PG/ML (247-911)
[2019-08-11 11:12] LABS: FOLATE 11.4 NG/ML (>5.4)
== END ==
LOC: M LAB 09:07
PROVIDERS: ATTEND Internal Medicine
DX: R53.83 Other fatigue (principal); I10 Essential (primary) hypertension; E55.9 Vitamin D deficiency, unspecified; Z79.899 Other long term (current) drug therapy

== ENCOUNTER → 2019-11-30 | Outpatient (CLI) | payer MEDICARE, OTHER ==
--- NOTE | 2019-11-30 15:33 | REPMRS ---
Patient History The patient states she had a clinical breast exam in November 2019.Family history of breast cancer at age 35 in niece. Benign excisional biopsy of the right breast, 1993. Taking estrogen for 16 years. Digital Woman Screen Mammo: November 30, 2019 - Exam #: [id number] Bilateral CC and MLO view(s) were taken. Technologist: Chelsie Thompson, Technologist Prior study comparison: November 24, 2018, bilateral digital woman screen mammo performed at [facility]. October 23, 2017, digital woman screen mammo performed at [facility]. October 22, 2016, digital woman screen mammo performed at [facility]. FINDINGS: There are scattered fibroglandular densities. The Volpara volumetric breast density category is: B. There is a moderate amount of residual fibroglandular tissue which is fairly symmetric. There is no interval development of dominant mass, architectural distortion, or grouped microcalcification typical of malignancy. There has been no change in the appearance of the mammogram from the prior studies. 3-D tomosynthesis shows no additional findings. Assessment: BI-RADS/ACR category 1 mammogram. Negative Mammogram. Recommendation Routine screening mammogram of both breasts in 1 year (for women over age 40). This patient's Lifetime Breast Cancer RIsk is estimated at 1.6 %. This mammogram was interpreted with the aid of an FDA-approved computer-aided dectection system. Electronically Signed By: Obinna Heaton MD 11/30/19 [id number]
== END ==
LOC: M WHC 14:34
PROVIDERS: ATTEND Specialist
DX: Z12.31 Encounter for screening mammogram for malignant neoplasm of breast (principal); Z80.3 Family history of malignant neoplasm of breast

== ENCOUNTER → 2020-07-17 | Outpatient (CLI) | payer MEDICARE, OTHER ==
[2020-07-17 10:38] LABS: ALBUMIN 3.4 GM/DL (3.2-5.2); ALT/SGPT 13 U/L (12-78); BILIRUBIN,TOTAL 0.5 MG/DL (0.2-1.0); BLOOD UREA NITROGEN 14 MG/DL (7-18); CALCIUM LEVEL 9.3 MG/DL (8.8-10.2); CARBON DIOXIDE LEVEL 28 MEQ/L (21-32); CHLORIDE LEVEL 105 MEQ/L (98-107); CREATININE FOR GFR 0.64 MG/DL (0.55-1.30); GLOMERULAR FILTRATION RATE > 60.0 (>32); GLUCOSE, FASTING 81 MG/DL (70-100); POTASSIUM SERUM 3.8 MEQ/L (3.5-5.1); SODIUM LEVEL 139 MEQ/L (136-145); TOTAL PROTEIN 6.4 GM/DL (6.4-8.2)
[2020-07-17 10:43] LABS: FOLATE 15.7 NG/ML; VITAMIN B12 LEVEL 787 PG/ML
== END ==
LOC: M LAB 08:57
PROVIDERS: ATTEND Internal Medicine
DX: R53.83 Other fatigue (principal); I10 Essential (primary) hypertension

== ENCOUNTER → 2020-12-13 | Outpatient (CLI) | payer MEDICARE, OTHER ==
--- NOTE | 2020-12-13 11:20 | REPMRS ---
Patient History The patient states she had a clinical breast exam in November 2020. Family history of breast cancer at age 35 in niece. Benign excisional biopsy of the right breast, 1992. Taking estrogen for 16 years. Patient states no breast complaints today. Patient has signed MRS History Sheet. Digital Woman Screen Mammo: December 13, 2020 - Exam #: [id number] Bilateral CC and MLO view(s) were taken. Technologist: Chela Manzano, Technologist Prior study comparison: November 30, 2019, bilateral digital woman screen mammo performed at [facility]. November 24, 2018, bilateral digital woman screen mammo performed at [facility]. FINDINGS: The breast tissue is heterogeneously dense. This may lower the sensitivity of mammography. Screening. Digital screening (2D) mammography was performed bilaterally in the CC and MLO projections. Additionally, breast tomosynthesis (3D mammography) was performed bilaterally in the CC and MLO projections. Todays exam was compared to the prior exams. By history, the patient has no complaints of a palpable breast abnormality or other significant breast complaints. The breasts are unchanged in size and shape.Once again, dense heterogenous fibroglandular elements are seen bilaterally in a stable appearing pattern but to such a degree that the sensitivity of the mammogram in detecting cancer is decreased. There are no laxmi-soft tissue densities or spiculated masses. There is no internal architectural distortion.Calcifications are again seen in the breast/breasts. Some of these are in groups but no one group appears more suspicious than any other. There are no suspicious laxmi-calcific clusters. Skin thickening or nipple retraction is not present. IMPRESSION: BI-RADS Category 2- Benign Findings. There is no evidence of malignant alteration of the breasts. Followup examination recommended in one year. The Volpara volumetric breast density category is C, the breasts are heterogenously dense which may obscure small masses. This mammogram was read with the assistance of [employer],an FDA approved computer aided detection system for mammography. The lifetime Tyrer-Cuzick score is 1.3 % Negative x-ray reports should not delay surgical consultation if a dominant or clinically suspicious mass is present. Not all breast cancers can be identified by mammography. Therefore, we recommend that you continue to perform regular breast self-examination and physical examination and then promptly contact your physician of any concerns or changes. Adenosis and dense breasts may obscure an underlying neoplasm. Assessment: BI-RADS/ACR category 2 mammogram. Benign Findings. Recommendation Routine screening mammogram of both breasts in 1 year. Electronically Signed By: Jarrod Stoddard DO 12/13/20 0505
== END ==
LOC: M WHC 10:37
PROVIDERS: ATTEND Internal Medicine
DX: Z12.31 Encounter for screening mammogram for malignant neoplasm of breast (principal); Z80.3 Family history of malignant neoplasm of breast; Z98.890 Other specified postprocedural states

== ENCOUNTER → 2021-01-18 | Outpatient (CLI) | payer MEDICARE, OTHER ==
[2021-01-18 10:53] LABS: BASO # 0.1 10^3/uL (0.0-0.2); BASO % 0.8 % (0.0-1.0); EOS # 0.2 10^3/uL (0.0-0.5); EOS % 2.1 % (0.0-3.0); HEMATOCRIT 39.5 % (36.0-47.0); HEMOGLOBIN 13.1 g/dl (12.0-15.5); LYMPH # 2.5 10^3/uL (1.5-5.0); LYMPH % 32.9 % (24.0-44.0); MEAN CORPUSCULAR HGB CONC 33.2 g/dl (32.0-36.5); MEAN CORPUSCULAR VOLUME 93.6 fl (80.0-96.0); MONO # 0.6 10^3/uL (0.0-0.8); MONO % 8.4 % (2.0-8.0); NEUTROPHILS # 4.2 10^3/uL (1.5-8.5); NEUTROPHILS % 55.4 % (36.0-66.0); PLATELET COUNT, AUTOMATED 290 10^3/uL (150-450); RED BLOOD COUNT 4.22 10^6/uL (4.00-5.40); WHITE BLOOD COUNT 7.5 10^3/uL (4.0-10.0)
[2021-01-18 11:33] LABS: ALBUMIN 3.5 GM/DL (3.2-5.2); ALT/SGPT 19 U/L (12-78); BILIRUBIN,TOTAL 0.5 MG/DL (0.2-1.0); BLOOD UREA NITROGEN 15 MG/DL (7-18); CALCIUM LEVEL 9.1 MG/DL (8.8-10.2); CARBON DIOXIDE LEVEL 29 MEQ/L (21-32); CHLORIDE LEVEL 103 MEQ/L (98-107); CREATININE FOR GFR 0.58 MG/DL (0.55-1.30); GLOMERULAR FILTRATION RATE > 60.0 (>32); GLUCOSE, FASTING 77 MG/DL (70-100); MAGNESIUM LEVEL 1.9 MG/DL (1.8-2.4); POTASSIUM SERUM 4.2 MEQ/L (3.5-5.1); SODIUM LEVEL 136 MEQ/L (136-145); TOTAL PROTEIN 6.5 GM/DL (6.4-8.2)
== END ==
LOC: M LAB 09:31
PROVIDERS: ATTEND Internal Medicine
DX: K21.9 Gastro-esophageal reflux disease without esophagitis (principal); I10 Essential (primary) hypertension

== ENCOUNTER 2021-06-14 22:18 | Emergency (ER) | payer MEDICARE, OTHER ==
[~2021-06-14] VITALS: Ht 167.6 cm; Wt 77.0 kg
--- OUTSIDE RECORDS SUMMARY | 2021-06-14 22:26 | CCD ---
Author Author [facility] Organization [facility] Address Unknown Phone Unavailable Care Team Providers Care Manager Of Global Name Role Phone Sis SANTANA MD Unavailable Unavailable Sis SANTANA MD Unavailable Unavailable Sis SANTANA MD Unavailable Unavailable Sis SANTANA MD Unavailable Unavailable Sis SANTANA MD Unavailable Unavailable Sis SANTANA MD Unavailable Unavailable Sis SANTANA MD Unavailable Unavailable Sis SANTANA MD Unavailable Unavailable Sis SANTANA MD Unavailable Unavailable Sis SANTANA MD Unavailable Unavailable Sis SANTANA MD Unavailable Unavailable Sis SANTANA MD Unavailable Unavailable Sis SANTANA MD Unavailable Unavailable Sis SANTANA MD Unavailable Unavailable Sis SANTANA MD Unavailable Unavailable Sis SANTANA MD Unavailable Unavailable Sis SANTANA MD Unavailable Unavailable Sis SANTANA MD Unavailable Unavailable Sis SANTANA MD Unavailable Unavailable Sis SANTANA MD Unavailable Unavailable Sis SANTANA MD Unavailable Unavailable Sis SANTANA MD Unavailable Unavailable Sis SANTANA MD Unavailable Unavailable Sis SANTANA MD Unavailable Unavailable Sis SANTANA MD Unavailable Unavailable Sis SANTANA MD Unavailable Unavailable Sis SANTANA MD Unavailable Unavailable Sis SANTAAN MD Unavailable Unavailable Sis SANTANA MD Unavailable Unavailable Sis SANTANA MD Unavailable Unavailable Ssi SANTANA MD Unavailable Unavailable Sis SANTANA MD Unavailable Unavailable Sis SANTANA MD Unavailable Unavailable Sis SANTANA MD Unavailable Unavailable Sis SANTANA MD Unavailable Unavailable Sis SANTANA MD Unavailable Unavailable Sis SANTANA MD Unavailable Unavailable Sis SANTANA MD Unavailable Unavailable Sis SANTANA MD Unavailable Unavailable Sis SANTANA MD Unavailable Unavailable Sis SANTANA MD Unavailable Unavailable Sis SANTANA MD Unavailable Unavailable Sis SANTANA MD Unavailable Unavailable Sis SANTANA MD Unavailable Unavailable Sis SANTANA MD Unavailable Unavailable Sis SANTANA MD Unavailable Unavailable Sis SANTANA MD Unavailable Unavailable Sis SANTANA MD Unavailable Unavailable Sis SANTANA MD Unavailable Unavailable Sis SANTANA MD Unavailable Unavailable Sis SANTANA MD Unavailable Unavailable Sis SANTANA MD Unavailable Unavailable Sis SANTANA MD Unavailable Unavailable Sis SANTANA MD Unavailable Unavailable Sis SANTANA MD Unavailable Unavailable Sis SANTANA MD Unavailable Unavailable Sis SANTANA MD Unavailable Unavailable Sis SANTANA MD Unavailable Unavailable DRAZEK, I KEYSHAWN PA Unavailable Unavailable DRAZEK, I KEYSHAWN PA Unavailable Unavailable DRAZEK, I KEYSHAWN PA Unavailable Unavailable DRAZEK, I KEYSHAWN PA Unavailable Unavailable DRAZEK, I KEYSHAWN PA Unavailable Unavailable DRAZEK, I KEYSHAWN PA Unavailable Unavailable DRAZEK, I KEYSHAWN PA Unavailable Unavailable DRAZEK, I KEYSHAWN PA Unavailable Unavailable DRAZEK, I KEYSHAWN PA Unavailable Unavailable DRAZEK, I KEYSHAWN PA Unavailable Unavailable DRAZEK, I KEYSHAWN PA Unavailable Unavailable DRAZEK, I KEYSHAWN PA Unavailable Unavailable DRAZEK, I KEYSHAWN PA Unavailable Unavailable DRAZEK, I KEYSHAWN PA Unavailable Unavailable DRAZEK, I KEYSHAWN PA Unavailable Unavailable DRAZEK, I KEYSHAWN PA Unavailable Unavailable DRAZEK, I KEYSHAWN PA Unavailable Unavailable DRAZEK, I EKYSHAWN PA Unavailable Unavailable DRAZEK, I KEYSHAWN PA Unavailable Unavailable DRAZEK, I KEYSHAWN PA Unavailable Unavailable DRAZEK, I KEYSHAWN PA Unavailable Unavailable DRAZEK, I KEYSHAWN PA Unavailable Unavailable DRAZEK, I KEYSHAWN PA Unavailable Unavailable DRAZEK, I KEYSHAWN PA Unavailable Unavailable DRAZEK, I KEYSHAWN PA Unavailable Unavailable DRAZEK, I KEYSHAWN PA Unavailable Unavailable DRAZEK, I KEYSHAWN PA Unavailable Unavailable DRAZEK, I KEYSHAWN PA Unavailable Unavailable DRAZEK, I KEYSHAWN PA Unavailable Unavailable DRAZEK, I KEYSHAWN PA Unavailable Unavailable Hegard, Carline COURTESY VAN DRIVER Unavailable Unavailable Hegard, Carline COURTESY VAN DRIVER Unavailable Unavailable Hegard, Carline COURTESY VAN DRIVER Unavailable Unavailable Hegard, Carline COURTESY VAN DRIVER Unavailable Unavailable Hegard, Carline COURTESY VAN DRIVER Unavailable Unavailable Hegard, Carline COURTESY VAN DRIVER Unavailable Unavailable Hegard, Carline COURTESY VAN DRIVER Unavailable Unavailable Hegard, Carline COURTESY VAN DRIVER Unavailable Unavailable Hegard, Carline COURTESY VAN DRIVER Unavailable Unavailable Hegard, Carline COURTESY VAN DRIVER Unavailable Unavailable Hegard, Carline COURTESY VAN DRIVER Unavailable Unavailable Hegard, Carline COURTESY VAN DRIVER Unavailable Unavailable Hegard, Carline COURTESY VAN DRIVER Unavailable Unavailable Hegard, Carline COURTESY VAN DRIVER Unavailable Unavailable Hegard, Carline COURTESY VAN DRIVER Unavailable Unavailable Hegard, Carline COURTESY VAN DRIVER Unavailable Unavailable Hegard, Carline COURTESY VAN DRIVER Unavailable Unavailable Re-disclosure Warning The records that you are about to access may contain information from federally-assisted alcohol or drug abuse programs. If such information is present, then the following federally mandated warning applies: This information has been disclosed to you from records protected by federal confidentiality rules (42 CFR part 2). The federal rules prohibit you from making any further disclosure of this information unless further disclosure is expressly permitted by the written consent of the person to whom it pertains or as otherwise permitted by 42 CFR part 2. A general authorization for the release of medical or other information is NOT sufficient for this purpose. The Federal rules restrict any use of the information to criminally investigate or prosecute any alcohol or drug abuse patient.The records that you are about to access may contain highly sensitive health information, the redisclosure of which is protected by Article 27-F of the [facility] Public Health law. If you continue you may have access to information: Regarding HIV / AIDS; Provided by facilities licensed or operated by the [facility] Office of Mental Health; or Provided by the [facility] Office for People With Developmental Disabilities. If such information is present, then the following [facility] mandated warning applies: This information has been disclosed to you from confidential records which are protected by state law. State law prohibits you from making any further disclosure of this information without the specific written consent of the person to whom it pertains, or as otherwise permitted by law. Any unauthorized further disclosure in violation of state law may result in a fine or fdc sentence or both. A general authorization for the release of medical or other information is NOT sufficient authorization for further disc losure. Family History Family Member Name Family Member Gender Family Member Status Date o f Status Description Data Source(s) Unknown Unknown Problem MEDENT ([facility]) Unknown Female Problem MEDENT ([facility]) Encounters Encounter Providers Location Date Indications Data Source(s ) Unknown [address] [facility] [address] 04/04/2021 12:00:00 AM EDT eCW1 ([facility]) Outpatient Attender: Carline Fontana [facility] Main Office 0 03/12/2021 12:30:00 PM EDT MEDENT ([facility]) Unknown [address] [facility] [id number] 02/13/2021 12:00:00 AM EDT eCW1 ([facility]) Outpatient [address] [facility] [place] [address] 01/30/2021 12:00:00 AM EDT eCW1 ([facility]) Unknown [address] [facility] [address] 01/23/2021 12:00:00 AM EDT eCW1 ([facility]) Unknown [address] 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 [place] [address] 11/20/2020 12:00:00 AM EDT eCW1 ([facility]) Outpatient Attender: CLARK SANTANA MD 11/13/2020 12:00:00 AM EDT [facility] Unknown [address] [facility] [address] 10/05/2020 12:00:00 AM EDT eCW1 ([facility]) [place] [address] [facility] [address] 09/26/2020 12:00:00 AM EDT eCW1 ([facility]) Office Visit Attender: KEYSHAWN MIRANDA Physical Therapy 2020 08:45:00 AM EST MEDENT ([facility]) [place] [address] [facility] [address] 07/19/2020 12:00:00 AM EST eCW1 ([facility]) Unknown [address] [facility] [address] 05/29/2020 12:00:00 AM EST eCW1 ([facility]) OFFICE OUTPATIENT VISIT 15 MINUTES Attender: KEYSHAWN MIRANDA Phys ical Therapy 05/02/2020 03:45:00 PM EDT MEDENT ([facility]) Immunizations Vaccine Date Status Description Data Source(s) COVID-19 VACCINE Pfizer 04/26/2021 12:00:00 AM EDT completed [facility] Vaccine Series Complete: YESThis Data wa s Submitted to [facility] Via [employer]. COVID-19 dose #2 given elsewhere Unspecified 08/17/2020 05:4 2:00 AM EST completed eCW1 ([facility]) COVID-19 dose #2 given elsewhere Unspecified 08/17/2020 05:4 2:00 AM EST completed eCW1 ([facility]) COVID-19 dose #2 given elsewhere Unspecified 08/17/2020 05:4 2:00 AM EST completed eCW1 ([facility]) COVID-19 dose #2 given elsewhere Unspecified 08/17/2020 05:4 2:00 AM EST completed eCW1 ([facility]) COVID-19 VACCINE Pfizer 08/17/2020 12:00:00 AM EST completed [facility] Vaccine Series Complete: YESThis Data wa s Submitted to [facility] Via [employer]. COVID-19 dose #1 given elsewhere Unspecified 07/27/2020 05:4 2:00 AM EST completed eCW1 ([facility]) COVID-19 dose #1 given elsewhere Unspecified 07/27/2020 05:4 2:00 AM EST completed eCW1 ([facility]) COVID-19 dose #1 given elsewhere Unspecified 07/27/2020 05:4 2:00 AM EST completed eCW1 ([facility]) COVID-19 dose #1 given elsewhere Unspecified 07/27/2020 05:4 2:00 AM EST completed eCW1 ([facility]) COVID-19 VACCINE Pfizer 07/27/2020 12:00:00 AM EST completed [facility] Vaccine Series Complete: NOThis Data was Submitted to [facility] Via [employer]. IIV3. This is one of two codes replacing CVX 15, which is being retired. 04/19/2020 09:12:00 AM EDT completed eCW1 ([facility]) IIV3. This is one of two codes replacing CVX 15, which is being retired. 04/19/2020 09:12:00 AM EDT completed eCW1 ([facility]) IIV3. This is one of two codes replacing CVX 15, which is being retired. 04/19/2020 09:12:00 AM EDT completed eCW1 ([facility]) IIV3. This is one of two codes replacing CVX 15, which is being retired. 04/19/2020 09:12:00 AM EDT completed eCW1 ([facility]) IIV3. This is one of two codes replacing CVX 15, which is being retired. 04/19/2020 09:12:00 AM EDT completed eCW1 ([facility]) IIV3. This is one of two codes replacing CVX 15, which is being retired. 04/19/2020 09:12:00 AM EDT completed eCW1 ([facility]) IIV3. This is one of two codes replacing CVX 15, which is being retired. 04/19/2020 09:12:00 AM EDT completed eCW1 ([facility]) IIV3. This is one of two codes replacing CVX 15, which is being retired. 04/19/2020 09:12:00 AM EDT completed eCW1 ([facility]) IIV3. This is one of two codes replacing CVX 15, which is being retired. 04/19/2020 09:12:00 AM EDT completed eCW1 ([facility]) IIV3. This is one of two codes replacing CVX 15, which is being retired. 04/19/2020 09:12:00 AM EDT completed eCW1 ([facility]) Medications Medication Brand Name Start Date Product Form Dose Route Admi nistrative Instructions Pharmacy Instructions Status Indications Reaction Description Data Source(s) 500 mg 04/27/2021 12:00:00 AM EDT tablet 29 TAKE TWO TABLETS BY MOUTH NOW THEN TAKE ONE TABLET FOUR TIMES A DAY UNTIL FINISHED TAKE TWO TABLETS BY MOUTH NOW THEN TAKE ONE TABLET FOUR TIMES A DAY UNTIL FINISHED SOLD: 04/27/2021 [facility] Hydrochlorothiazide 12.5 MG Oral Tablet hydroCHLOROthi azide 12.5 MG hydroCHLOROthiazide 12.5 MG 04/04/2021 12:00:00 AM EDT 1.0 {tablet_in_the_morning} active hydroCHL OROthiazide 12.5 MG eCW1 ([facility]) Nystatin 579489 UNT/ML Oral Suspension Nystatin 618699 UNIT/ML Nystatin 676344 UNIT/ML 02/13/2021 12:00:00 AM EDT active Nystatin 115958 UNIT/ML eCW1 ([facility]) Nystatin 180400 UNT/ML Oral Suspension Nystatin 976095 UNIT/ML Nystatin 323916 UNIT/ML 02/13/2021 12:00:00 AM EDT active eCW1 ([facility]) Sertraline 25 MG Oral Tablet Sertraline HCl 25 MG Sertraline HCl 25 MG 01/30/2021 12:00:00 AM EDT 1.0 {tablet} active Sertraline HCl 25 MG eCW1 ([facility]) Colestipol Hydrochloride 1000 MG Oral Tablet Colestipo l HCl 1 GM Colestipol HCl 1 GM 01/30/2021 12:00:00 AM EDT 2.0 {tablets} acti ve Colestipol HCl 1 GM eCW1 ([facility]) Colestipol Hydrochloride 1000 MG Oral Tablet Colestipo l HCl 1 GM Colestipol HCl 1 GM 01/30/2021 12:00:00 AM EDT 2.0 {tablets} acti ve Colestipol HCl 1 GM eCW1 ([facility]) Sertraline 25 MG Oral Tablet Sertraline HCl 25 MG Sertraline HCl 25 MG 01/30/2021 12:00:00 AM EDT 1.0 {tablet} active eCW1 ([facility]) Colestipol Hydrochloride 1000 MG Oral Tablet Colestipo l HCl 1 GM Colestipol HCl 1 GM 01/30/2021 12:00:00 AM EDT 2.0 {tablets} active eCW1 ([facility]) Sertraline 25 MG Oral Tablet Sertraline HCl 25 MG Sertraline HCl 25 MG 01/30/2021 12:00:00 AM EDT 1.0 {tablet} active Sertraline HCl 25 MG eCW1 ([facility]) 168 HR Estradiol 0.26657 MG/HR Transdermal Patch [Clim sandi] Climara 0.1 MG/24HR Climara 0.1 MG/24HR 12/03/2020 12:00:00 AM EDT 1.0 {patch_to_skin} suspended Climara 0.1 MG/24HR eCW1 ([facility]) 168 HR Estradiol 0.94605 MG/HR Transdermal Patch [Clim sandi] Climara 0.1 MG/24HR Climara 0.1 MG/24HR 12/03/2020 12:00:00 AM EDT 1.0 {patch_to_skin} active Climara 0.1 MG/24HR eCW1 ([facility]) 168 HR Estradiol 0.80522 MG/HR Transdermal Patch [Clim sandi] Climara 0.1 MG/24HR Climara 0.1 MG/24HR 12/03/2020 12:00:00 AM EDT 1.0 {patch_to_skin} suspended eCW1 ([facility]) 168 HR Estradiol 0.00744 MG/HR Transdermal Patch [Clim sandi] Climara 0.1 MG/24HR Climara 0.1 MG/24HR 12/03/2020 12:00:00 AM EDT 1.0 {patch_to_skin} active Climara 0.1 MG/24HR eCW1 ([facility]) 168 HR Estradiol 0.76921 MG/HR Transdermal Patch [Clim sanid] Climara 0.1 MG/24HR Climara 0.1 MG/24HR 12/03/2020 12:00:00 AM EDT 1.0 {patch_to_skin} suspended Climara 0.1 MG/24HR eCW1 ([facility]) 168 HR Estradiol 0.82024 MG/HR Transdermal Patch [Clim sandi] Climara 0.1 MG/24HR Climara 0.1 MG/24HR 12/03/2020 12:00:00 AM EDT 1.0 {patch_to_skin} active Climara 0.1 MG/24HR eCW1 ([facility]) 168 HR Estradiol 0.55830 MG/HR Transdermal Patch [Clim sandi] Climara 0.1 MG/24HR Climara 0.1 MG/24HR 11/27/2020 12:00:00 AM EDT 1.0 {patch_to_skin} active Climara 0.1 MG/24HR eCW1 ([facility]) Estradiol 0.01 MG Vaginal Tablet [Vagifem] Vagifem 10 MCG Va gifem 10 MCG 11/27/2020 12:00:00 AM EDT 1.0 {tablet} suspended Vagifem 10 MCG eCW1 ([facility]) 168 HR Estradiol 0.50399 MG/HR Transdermal Patch [Clim sandi] Climara 0.1 MG/24HR Climara 0.1 MG/24HR 11/27/2020 12:00:00 AM EDT 1.0 {patch_to_skin} active eCW1 ([facility]) Estradiol 0.01 MG Vaginal Tablet [Vagifem] Vagifem 10 MCG Va gifem 10 MCG 11/27/2020 12:00:00 AM EDT 1.0 {tablet} active Vagifem 10 MCG eCW1 ([facility]) Estradiol 0.01 MG Vaginal Tablet [Vagifem] Vagifem 10 MCG Va gifem 10 MCG 11/27/2020 12:00:00 AM EDT 1.0 {tablet} active Vagifem 10 MCG eCW1 ([facility]) Estradiol 0.01 MG Vaginal Tablet [Vagifem] Vagifem 10 MCG Va gifem 10 MCG 11/27/2020 12:00:00 AM EDT 1.0 {tablet} active Vagifem 10 MCG eCW1 ([facility]) Estradiol 0.01 MG Vaginal Tablet [Vagifem] Vagifem 10 MCG Va gifem 10 MCG 11/27/2020 12:00:00 AM EDT 1.0 {tablet} suspended eCW1 ([facility]) 168 HR Estradiol 0.52279 MG/HR Transdermal Patch [Clim sandi] Climara 0.1 MG/24HR Climara 0.1 MG/24HR 11/27/2020 12:00:00 AM EDT 1.0 {patch_to_skin} active Climara 0.1 MG/24HR eCW1 ([facility]) 168 HR Estradiol 0.28361 MG/HR Transdermal Patch [Clim sandi] Climara 0.1 MG/24HR Climara 0.1 MG/24HR 11/27/2020 12:00:00 AM EDT 1.0 {patch_to_skin} active Climara 0.1 MG/24HR eCW1 ([facility]) 168 HR Estradiol 0.32493 MG/HR Transdermal Patch [Clim sandi] Climara 0.1 MG/24HR Climara 0.1 MG/24HR 11/27/2020 12:00:00 AM EDT 1.0 {patch_to_skin} active Climara 0.1 MG/24HR eCW1 ([facility]) 168 HR Estradiol 0.47546 MG/HR Transdermal Patch [Clim sandi] Climara 0.1 MG/24HR Climara 0.1 MG/24HR 11/27/2020 12:00:00 AM EDT 1.0 {patch_to_skin} active Climara 0.1 MG/24HR eCW1 ([facility]) Estradiol 0.01 MG Vaginal Tablet [Vagifem] Vagifem 10 MCG Va gifem 10 MCG 11/27/2020 12:00:00 AM EDT 1.0 {tablet} suspended Vagifem 10 MCG eCW1 ([facility]) 25 mg 07/24/2020 12:00:00 AM EST tablet 50 TAKE 1/2 TABLET BY MOUTH IN THE MORNING WITH FOOD ON FRIDAY, FRIDAY, AND FRIDAY TAKE 1/2 TABLET BY MOUTH IN THE MORNING WITH FOOD ON FRIDAY, FRIDAY, AND FRIDAY SOLD: 07/31/2020 [facility] 100 mg 07/20/2020 12:00:00 AM EST tablet 90 TAKE ONE TABLET BY MOUTH EVERY DAY TAKE ONE TABLET BY MOUTH EVERY DAY SOLD: 07/21/2020 [facility] Losartan Potassium 100 MG Oral Tablet Losartan Potassium 100 MG 07/19/2020 12:00:00 AM EST active Losartan Potassium 100 MG eCW1 ([facility]) Losartan Potassium 100 MG Oral Tablet Losartan Potassium 100 MG 07/19/2020 12:00:00 AM EST active Losartan Potassium 100 MG eCW1 ([facility]) Losartan Potassium 100 MG Oral Tablet Losartan Potassium 100 MG 07/19/2020 12:00:00 AM EST active Losartan Potassium 100 MG eCW1 ([facility]) Losartan Potassium 100 MG Oral Tablet Losartan Potassium 100 MG 07/19/2020 12:00:00 AM EST active Losartan Potassium 100 MG eCW1 ([facility]) Losartan Potassium 100 MG Oral Tablet Losartan Potassium 100 MG 07/19/2020 12:00:00 AM EST active Losartan Potassium 100 MG eCW1 ([facility]) Losartan Potassium 100 MG Oral Tablet Losartan Potassium 100 MG 07/19/2020 12:00:00 AM EST active Losartan Potassium 100 MG eCW1 ([facility]) Losartan Potassium 100 MG Oral Tablet Losartan Potassium 100 MG 07/19/2020 12:00:00 AM EST active Losartan Potassium 100 MG eCW1 ([facility]) Losartan Potassium 100 MG Oral Tablet Losartan Potassium 100 MG 07/19/2020 12:00:00 AM EST active Losartan Potassium 100 MG eCW1 ([facility]) Losartan Potassium 100 MG Oral Tablet Losartan Potassium 100 MG 07/19/2020 12:00:00 AM EST active Losartan Potassium 100 MG eCW1 ([facility]) Losartan Potassium 100 MG Oral Tablet Losartan Potassium 100 MG 07/19/2020 12:00:00 AM EST active e CW1 ([facility]) 168 HR Estradiol 0.76314 MG/HR Transdermal Patch [Clim sandi] Climara 0.1 MG/24HR Climara 0.1 MG/24HR 05/29/2020 12:00:00 AM EST 1.0 {patch_to_skin} active Climara 0.1 MG/24HR eCW1 ([facility]) 168 HR Estradiol 0.15641 MG/HR Transdermal Patch [Clim sandi] Climara 0.1 MG/24HR Climara 0.1 MG/24HR 05/29/2020 12:00:00 AM EST 1.0 {patch_to_skin} active Climara 0.1 MG/24HR eCW1 ([facility]) 168 HR Estradiol 0.00177 MG/HR Transdermal Patch [Clim sandi] Climara 0.1 MG/24HR Climara 0.1 MG/24HR 05/29/2020 12:00:00 AM EST 1.0 {patch_to_skin} active Climara 0.1 MG/24HR eCW1 ([facility]) 168 HR Estradiol 0.91298 MG/HR Transdermal Patch [Clim sandi] Climara 0.1 MG/24HR Climara 0.1 MG/24HR 05/29/2020 12:00:00 AM EST 1.0 {patch_to_skin} active Climara 0.1 MG/24HR eCW1 ([facility]) 168 HR Estradiol 0.24964 MG/HR Transdermal Patch [Clim sandi] Climara 0.1 MG/24HR Climara 0.1 MG/24HR 05/29/2020 12:00:00 AM EST 1.0 {patch_to_skin} active Climara 0.1 MG/24HR eCW1 ([facility]) Estradiol 0.01 MG Vaginal Tablet [Vagifem] Vagifem 10 MCG Va gifem 10 MCG 05/29/2020 12:00:00 AM EST 1.0 {tablet} active Vagifem 10 MCG eCW1 ([facility]) 168 HR Estradiol 0.48521 MG/HR Transdermal Patch [Clim sandi] Climara 0.1 MG/24HR Climara 0.1 MG/24HR 05/29/2020 12:00:00 AM EST 1.0 {patch_to_skin} active Climara 0.1 MG/24HR eCW1 ([facility]) Estradiol 0.01 MG Vaginal Tablet [Vagifem] Vagifem 10 MCG Va gifem 10 MCG 05/29/2020 12:00:00 AM EST 1.0 {tablet} active Vagifem 10 MCG eCW1 ([facility]) Estradiol 0.01 MG Vaginal Tablet [Vagifem] Vagifem 10 MCG Va gifem 10 MCG 05/29/2020 12:00:00 AM EST 1.0 {tablet} active Vagifem 10 MCG eCW1 ([facility]) Estradiol 0.01 MG Vaginal Tablet [Vagifem] Vagifem 10 MCG Va gifem 10 MCG 05/29/2020 12:00:00 AM EST 1.0 {tablet} active Vagifem 10 MCG eCW1 ([facility]) Estradiol 0.01 MG Vaginal Tablet [Vagifem] Vagifem 10 MCG Va gifem 10 MCG 05/29/2020 12:00:00 AM EST 1.0 {tablet} active Vagifem 10 MCG eCW1 ([facility]) 168 HR Estradiol 0.28496 MG/HR Transdermal Patch [Clim sandi] Climara 0.1 MG/24HR Climara 0.1 MG/24HR 05/29/2020 12:00:00 AM EST 1.0 {patch_to_skin} active Climara 0.1 MG/24HR eCW1 ([facility]) 168 HR Estradiol 0.45993 MG/HR Transdermal Patch [Clim sandi] Climara 0.1 MG/24HR Climara 0.1 MG/24HR 05/29/2020 12:00:00 AM EST 1.0 {patch_to_skin} active eCW1 ([facility]) Estradiol 0.01 MG Vaginal Tablet [Vagifem] Vagifem 10 MCG Va gifem 10 MCG 05/29/2020 12:00:00 AM EST 1.0 {tablet} active Vagifem 10 MCG eCW1 ([facility]) Estradiol 0.01 MG Vaginal Tablet [Vagifem] Vagifem 10 MCG Va gifem 10 MCG 05/29/2020 12:00:00 AM EST 1.0 {tablet} active Vagifem 10 MCG eCW1 ([facility]) Estradiol 0.01 MG Vaginal Tablet [Vagifem] Vagifem 10 MCG Va gifem 10 MCG 05/29/2020 12:00:00 AM EST 1.0 {tablet} active eCW1 ([facility]) Estradiol 0.01 MG Vaginal Tablet [Vagifem] Vagifem 10 MCG Va gifem 10 MCG 05/29/2020 12:00:00 AM EST 1.0 {tablet} active Vagifem 10 MCG eCW1 ([facility]) 168 HR Estradiol 0.90679 MG/HR Transdermal Patch [Clim sandi] Climara 0.1 MG/24HR Climara 0.1 MG/24HR 05/29/2020 12:00:00 AM EST 1.0 {patch_to_skin} active Climara 0.1 MG/24HR eCW1 ([facility]) 168 HR Estradiol 0.52954 MG/HR Transdermal Patch [Clim sandi] Climara 0.1 MG/24HR Climara 0.1 MG/24HR 05/29/2020 12:00:00 AM EST 1.0 {patch_to_skin} active Climara 0.1 MG/24HR eCW1 ([facility]) Estradiol 0.01 MG Vaginal Tablet [Vagifem] Vagifem 10 MCG Va gifem 10 MCG 05/29/2020 12:00:00 AM EST 1.0 {tablet} active Vagifem 10 MCG eCW1 ([facility]) Estradiol 0.01 MG Vaginal Tablet [Vagifem] Vagifem 10 MCG Va gifem 10 MCG 05/29/2020 12:00:00 AM EST 1.0 {tablet} active Vagifem 10 MCG eCW1 ([facility]) 168 HR Estradiol 0.36098 MG/HR Transdermal Patch [Clim sandi] Climara 0.1 MG/24HR Climara 0.1 MG/24HR 05/29/2020 12:00:00 AM EST 1.0 {patch_to_skin} active Climara 0.1 MG/24HR eCW1 ([facility]) Insurance Providers Payer name Policy type / Coverage type Policy ID Covered green party ID Covered green party's relationship to gonzales Policy [place] Plan Information PROCLAIM [facility] [id number] Medicare Part B [facility] [id number] 0 [id number] Medicare Part B [facility] [id number] 0 [id number] MEDICARE A [id number] Self [id number] MEDICARE [id number] SP [id number] A MEDICARE A [id number] Self [id number] A FOR LIFE [id number] SP [id number] FOR LIFE U [id number] Spouse [id number] [place] [facility] [id number] Family Dependent 0 [id number] [place] [facility] [facility] [id number] Family Dependent [id number] [place] [id number] Self [id number] [place] Primary [id number] Self 4 [id number] [place] [facility] [id number] Family Dependent 0 [id number] [place] Primary [id number] 2.0.1.113230.3.227.99.991.85341.0 Self 4 [id number] [place] [facility] [id number]9.991.09860.0 Family Dependent 0 [id number] [place] Primary [id number] 2.16.840.1.290189.3.227.99.991.80326.0 Self 4 [id number] [place] [facility] [facility] ([place]) [facility] Part B [id number]9.991.95527.0 Family Dependent 0 [id number] [place] Primary [id number] 2.16.840.1.236389.3.227.99.991.92601.0 Self 4 [id number] [place] [facility] ([place]FL) [facility] Part B [id number]9.991.08713.0 Family Dependent 0 [id number] [place] Primary [id number] 2.16.840.1.038094.3.227.99.991.84585.0 Self 4 [id number] [place] [facility] ([place]FL) [facility] Part B [id number]9.991.09895.0 Family Dependent 0 [id number] [place] Primary [id number] 2.16.840.1.716457.3.227.99.991.84093.0 Self 0 [id number] [place] [facility] ([place]FL) [facility] Part B [id number]9.991.87674.0 Family Dependent 0 [id number] [place] Primary [id number] 2.16.840.1.297183.3.227.99.991.65050.0 Self 0 [id number] [place] [facility] ([place]FL) [facility] Part B [id number] 2.16.840.1.611620.3.227.99.991.06738.0 Family Dependent 0 [id number] [place] Primary [id number] 2.16.840.1.932153.3.227.99.991.20199.0 Self 0 [id number] [place] [facility] ([place]FL) [facility] Part B [id number] 2.16.840.1.241522.3.227.99.991.86503.0 Family Dependent 0 [id number] [place] Primary [id number] 2.16.840.1.225033.3.227.99.991.04111.0 Self 0 [id number] [place] [facility] ([place]FL) [facility] Part B [id number] 2.16.840.1.195736.3.227.99.991.43951.0 Family Dependent 0 [id number] [place] Primary [id number] 2.16.840.1.463758.3.227.99.991.58924.0 Self 0 [id number] [place] [facility] ([place]FL) [facility] Part B [id number] 2.16.840.1.268740.3.227.99.991.77580.0 Family Dependent 0 [id number] [place] Primary [id number] 2.16.840.1.871232.3.227.99.991.25658.0 Self 0 [id number] [place] [facility] (TFL) [facility] Part B [id number] 2.16.840.1.623243.3.227.99.991.63485.0 Family Dependent 0 [id number] [place] Primary [id number] 2.16.840.1.404068.3.227.99.991.66652.0 Self 0 [id number] [place] [facility] ([place]FL) [facility] Part B [id number] 2.16.840.1.708429.3.227.99.991.97038.0 Family Dependent 0 [id number] [place] Primary [id number] 2.16.840.1.073807.3.227.99.991.65815.0 Self 0 [id number] [place] [facility] (TFL) [employer] Part B [id number] Family Dep endent [place] Primary [id number] Self [place] [facility] (TFL) [employer] Part B [id number] Family Dependent [id number] [place] Primary [id number] Self [id number] FOR LIFE U [id number] Spouse 0 [id number] FOR LIFE [id number] SP [id number] ANSI-Commercial [id number] FOR LIFE -O/P [place] [id number] 18 [id number] [employer] [place] 304/804 [id number] SP [id number] MEDICARE PART A -O/P [id number] 18 [id number] [facility] 0 0 0 MEDICARE [id number] SP [id number] M88 Medicare Part B [facility] 0 0 0 MEDICARE PART A -O/P [id number] 18 [id number] FOR LIFE [id number] 18 00 [id number] FOR LIFE O [id number] S [id number] ANSI-Commercial [id number] ANSI-Medicare Part B [id number] MEDICARE C [id number] S [id number] A [id number] [facility] [id number] 0 [id number] FOR LIFE [id number] SP [id number] FOR LIFE -[place] [id number] 18 [id number] ANSI-Medicare Part B [id number] ANSI-Commercial [id number] MEDICARE [id number] SP [id number] A [id number] A WPS For Life Medigap Part B [id number] Family Depende nt [place] Medicare Primary 4831 Self RHC MEDICARE PART A [facility] [id number] 18 [id number] ANSI-Medicare Part B [id number] Problems, Conditions, and Diagnoses Code Display Name Description Problem Type Effective Dates Data Source(s) F34.1 37118903 Dysthymia Problem 01/30/2021 12:00:00 AM ED T eCW1 ([facility]) H90.3 [id number] Sensorineural hearing loss (SNHL) of both ears Problem 07/19/2020 12:00:00 AM EST eCW1 ([facility]) Surgeries/Procedures Procedure Description Date Indications Data Source(s) DESTRUCTION BENIGN LESIONS UP TO 14 03/26/2021 12:00:0 0 AM EDT [facility] ([facility]) DESTRUCTION PREMALIGNANT LESION 1ST 03/12/2021 12:00:0 0 AM EDT [facility] ([facility]) DESTRUCTION PREMALIGNANT LESION 2-14 EA 03/12/2021 12: 00:00 AM EDT [facility] ([facility]) OFFICE OUTPATIENT VISIT 25 MINUTES 03/12/2021 12:00:00 AM EDT [facility] ([facility]) ARTHROCENTESIS ASPIR&/INJECTION MAJOR JT/BURSA 021 12:00:00 AM EST [facility] ([facility] ) X-Ray Hip Unilateral With Pelvis 2-3 Views 09/22/2020 12:00:00 AM EST [facility] ([facility] ) ARTHROCENTESIS ASPIR&/INJECTION MAJOR JT/BURSA 020 12:00:00 AM EDT [facility] ([facility] ) Results No Information Social History Code Duration Value Status Description Data Source(s ) Smoking 01/30/2021 12:00:00 AM EDT Never Smoker completed Never S moker eCW1 ([facility]) Smoking 01/30/2021 12:00:00 AM EDT Never Smoker completed Never S moker eCW1 ([facility]) Smoking 01/30/2021 12:00:00 AM EDT Never Smoker completed Never S moker eCW1 ([facility]) Smoking 01/23/2021 12:00:00 AM EDT Never Smoker completed Never S moker eCW1 ([facility]) Smoking 11/27/2020 12:00:00 AM EDT Never Smoker completed Never S moker eCW1 ([facility]) Smoking 11/27/2020 12:00:00 AM EDT Never Smoker completed Never S moker eCW1 ([facility]) Smoking 09/22/2020 12:00:00 AM EST Patient has never smoked co mpleted Patient has never smoked MED[facility] ([facility] ) Smoking 07/19/2020 12:00:00 AM EST Never Smoker completed Never S moker eCW1 ([facility]) Smoking 07/19/2020 12:00:00 AM EST Never Smoker completed Never S moker eCW1 ([facility]) Smoking 07/19/2020 12:00:00 AM EST Never Smoker completed Never S moker eCW1 ([facility]) Smoking 07/19/2020 12:00:00 AM EST Never Smoker completed Never S moker eCW1 ([facility]) Vital Signs ID Date Data Source UNK Name Value Range Interpretation Code Description Data Source(s) Systolic blood pressure 167 mm[Hg] 167 mm[Hg] M EDENT ([facility]) Diastolic blood pressure 69 mm[Hg] 69 mm[Hg] [facility] ([facility]) Oxygen saturation in Arterial blood by Pulse oximetry 96 % 96 % [facility] ([facility]) Heart rate 83 /min 83 /min [facility] ([facility]) Respiratory rate 18 /min 18 /min MEDENT ( [facility]) Systolic blood pressure 148 mm[Hg] 148 mm[Hg] M EDENT ([facility]) Diastolic blood pressure 72 mm[Hg] 72 mm[Hg] [facility] ([facility]) Body weight 163.00 [lb_av] 163.00 [lb_av] MEDEN T ([facility]) Body height 65.5 [in_i] 65.5 [in_i] MED[facility] ([facility]) 5'5.50" Body mass index (BMI) [Ratio] 26.7 kg/m2 26.7 k g/m2 MEDENT ([facility]) Systolic blood pressure 142 mm[Hg] 142 mm[Hg] e CW1 ([facility]) Diastolic blood pressure 66 mm[Hg] 66 mm[Hg] eCW1 ([facility]) Body weight 166.4 [lb_av] 166.4 [lb_av] eCW1 ([facility]) Body height 65.5 [in_i] 65.5 [in_i] eCW1 ([facility]) Body mass index (BMI) [Ratio] 27.27 kg/m2 27.27 kg/m2 W1 ([facility]) Heart rate 78 /min 78 /min eCW1 ([facility]) Respiratory rate 18 /min 18 /min eCW1 ([facility]) Body temperature 97.9 [degF] 97.9 [degF] eCW1 ( [facility]) Body weight 171.8 [lb_av] 171.8 [lb_av] eCW1 ([facility]) Body height 65.5 [in_i] 65.5 [in_i] eCW1 ([facility]) Body mass index (BMI) [Ratio] 28.15 kg/m2 28.15 kg/m2 W1 ([facility]) Systolic blood pressure 144 mm[Hg] 144 mm[Hg] e CW1 ([facility]) Diastolic blood pressure mm[Hg] eCW1 ([facility]) Body temperature 97.9 [degF] 97.9 [degF] MEDENT ([facility]) Systolic blood pressure 122 mm[Hg] 122 mm[Hg] M EDENT ([facility]) Diastolic blood pressure 70 mm[Hg] 70 mm[Hg] MEDENT ([facility]) Body weight 163.00 [lb_av] 163.00 [lb_av] MEDEN T ([facility]) Body weight 171.8 [lb_av] 171.8 [lb_av] eCW1 ([facility]) Body height 65.5 [in_i] 65.5 [in_i] eCW1 ([facility]) Body mass index (BMI) [Ratio] 28.15 kg/m2 28.15 kg/m2 eCW1 ([facility]) Heart rate 86 /min 86 /min eCW1 ([facility]) Respiratory rate 18 /min 18 /min eCW1 ([facility]) Body temperature 97.8 [degF] 97.8 [degF] eCW1 ( [facility]) Systolic blood pressure 158 mm[Hg] 158 mm[Hg] e CW1 ([facility]) Diastolic blood pressure 78 mm[Hg] 78 mm[Hg] eCW1 ([facility]) Body temperature 97.1 [degF] 97.1 [degF] MEDENT ([facility]) Patient Treatment Plan of Care Planned Activity Planned Date Details Description Data Source (s) Hydrochlorothiazide 12.5 MG Oral Tablet 04/04/2021 12:00:00 AM EDT eCW1 ([facility]) Nystatin 992312 UNT/ML Oral Suspension 02/13/2021 12:00:00 AM EDT eCW1 ([facility]) Nystatin 210645 UNT/ML Oral Suspension 02/13/2021 12:00:00 AM EDT eCW1 ([facility]) Sertraline 25 MG Oral Tablet 01/30/2021 12:00:00 AM EDT eCW1 ([facility]) Colestipol Hydrochloride 1000 MG Oral Tablet 01/30/2021 12:00:00 AM EDT eCW1 ([facility]) Sertraline 25 MG Oral Tablet 01/30/2021 12:00:00 AM EDT eCW1 ([facility]) Colestipol Hydrochloride 1000 MG Oral Tablet 01/30/2021 12:00:00 AM EDT eCW1 ([facility]) Colestipol Hydrochloride 1000 MG Oral Tablet 01/30/2021 12:00:00 AM EDT eCW1 ([facility]) Sertraline 25 MG Oral Tablet 01/30/2021 12:00:00 AM EDT eCW1 ([facility]) 168 HR Estradiol 0.13957 MG/HR Transdermal Patch [Clim sandi] 12/03/2020 12:00:00 AM EDT eCW1 ([facility]) 168 HR Estradiol 0.46995 MG/HR Transdermal Patch [Clim sandi] 12/03/2020 12:00:00 AM EDT eCW1 ([facility]) 168 HR Estradiol 0.36386 MG/HR Transdermal Patch [Clim sandi] 11/27/2020 12:00:00 AM EDT eCW1 ([facility]) Estradiol 0.01 MG Vaginal Tablet [Vagifem] 11/27/2020 12:00:00 AM E DT eCW1 ([facility]) 168 HR Estradiol 0.33657 MG/HR Transdermal Patch [Clim sandi] 11/27/2020 12:00:00 AM EDT eCW1 ([facility]) Estradiol 0.01 MG Vaginal Tablet [Vagifem] 11/27/2020 12:00:00 AM E DT eCW1 ([facility]) Losartan Potassium 100 MG Oral Tablet 07/19/2020 12:00:00 AM EST eCW1 ([facility]) Losartan Potassium 100 MG Oral Tablet 07/19/2020 12:00:00 AM EST eCW1 ([facility]) Losartan Potassium 100 MG Oral Tablet 07/19/2020 12:00:00 AM EST eCW1 ([facility]) Losartan Potassium 100 MG Oral Tablet 07/19/2020 12:00:00 AM EST eCW1 ([facility]) Estradiol 0.01 MG Vaginal Tablet [Vagifem] 05/29/2020 12:00:[address] eCW1 ([facility]) 168 HR Estradiol 0.27326 MG/HR Transdermal Patch [Clim sandi] 05/29/2020 12:00:00 AM EST eCW1 ([facility])
--- OUTSIDE RECORDS SUMMARY | 2021-06-14 22:26 | CCD ---
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 Verapamil seems to help. When she has heartburn her palpitations are worse. She had an evaluation by a systems requirements planner and had a borderline stress test with a normal echocardiogram except for mild aortic insufficiency in Summer 2013; LVEF was 65-70%. Problem Irritable bowel syndrome (IBS) K58.9 Active confir med [id number] Had colonoscopy in 10/2009, Fall 2016 (hyperplastic polyp). Celiac sprue serologic evaluation negative in past. Verapamil has worked well to control her frequent bowel movements, through its constipating effect, but now she is having further difficulties and I started colestipol as of January 2021. 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 Problem Gastroesophageal reflux K21.9 Active confirmed [id number] On Aciphex and p.r.n. Carafate. Patient has currently controlled gastrointestinal issues. Last endoscopy done 2013. She also had one in 01/19, with pH probe. Her endoscopy was fairly unremarkable. Magnesium level is regularly monitored. Problem Osteoporosis M81.0 Active confirmed 0099112 6 Osteoporosis was confirmed by bone density study in 1996. Last DEXA was in 2017 and was normal. Off bisphosphonate due to tolerance issues. 25 hydroxy Vitamin D level has been low in the past, but 31 in December 2015, 22 in January 2018, 30 in July 2018, 37 in July 2019. She is taking an pcti-mhm-mqevhdi vitamin D supplement of about 14,000 units twice weekly. Problem Heart murmur R01.1 Active confirmed 9999399 04 She has a history of a heart murmur and palpitations and her echocardiogram in December 2013 was fairly unremarkable. Problem Presence of left artificial knee joint Z96.652 A ctive confirmed 167363090 She had a left knee replacement surgery in early 2015 and is doing well. Problem History of iron deficiency Z86.39 Active confirmed 068623345 She had iron deficiency anemia in December 2015. This improved with iron supplementation and she has a normal CBC as of June 2016, 12/2016, June 2017, January 2018, July 2018, January 2019, January 2021. She has been off the iron for some time now. She had full endoscopies which were negative. This will be followed. Problem Presence of right artificial knee joint Z96.651 Active confirmed 845582279 She has actually had bilateral knee repl acements. She is doing well. Problem Sensorineural hearing loss (SNHL) of both ears H90 .3 Active confirmed 665125112 She has obtained hea ring aids with benefit. Problem Vitamin D deficiency E55.9 Active confirmed 41749173 Discovered 07/22. On supplemental vitamin D level was 31 as of December 2015, 22 in January 2018, 30 in July 2018, 37 in July 2019. Problem Dysthymia F34.1 Active confirmed 07064660 S he is suffering from situational stress and I started low-dose sertraline as of January 2021. Problem Hypertension I10 Active confirmed 2383415 3 On verapamil and she was switched to chlorthalidone from HCTZ by her systems requirements planner in May 2017. She was changed from losartan to valsartan due to pharmaceutical issues earlier in 2019 but she felt poorly on the higher dose and stopped it completely in Fall 2019. She had a cough on MURRAY inhibitor therapy and has historically had numerous medication intolerances or failures. Has no endorgan complications. She has a history of white coat blood pressure elevations. She monitors home readings and her systolic readings are not well controlled since she stopped her valsartan. Since losartan is again available, I have restarted that as of July 2020. Problem Seasonal allergic rhinitis due to pollen J30.1 Active confirmed 50399320 Problem Hypercholesterolemia E78.00 Active confirmed 37102252 She has a history of hypercholesterolemia but her lipid control in January 2020 was reasonable, without pharmacotherapy. Her LDL was at primary prevention targets. I overlooked ordering a lipid panel for her January 2021 office visit and will be done at her next visit. 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 Has atrophic vaginitis and this is treated with ongoing vaginal estrogen, intensified(?) and HRT. She would like to see a more local letterpress setter and is referred. Problem Other fatigue R53.83 Active confirmed 799044 01 Lab work revealed a borderline low B12 level in the 280 range as of July 2019. Supplement was then started. Some of her fatigue seems to relate to her antihypertensive therapy and adjustments have been made. ALLERGIES Allergen (clinical drug ingredient) Drug/Non Drug Allergy do cumented on EMR Reaction Allergy Type Onset Date Status alendronate Alendronate Sodium([facility] Code:[address]-68) GERD Donald g Allergy Active Prevacid upper abd cramping Drug Allergy Acti ve lisinopril Lisinopril(NDC Code:[address]-19) chest pain Drug Allergy Active esomeprazole Nexium(NDC Code:[address]-48) upper abd cramping Drug A llergy Active Mavik(ND Code:[address]-02) SOB Drug Allergy Active DynaCirc CR headaches Drug Allergy Active clonidine Clonidine HCl(NDC Code:[address]-52) fatigue Drug Benjamín rgy Active Ranitidine HCl upper abd cramping Drug Allergy Active ENCOUNTERS from 1940 to 2021-04-04 Encounter Location Date Provider Diagnosis [facility] [address] [phone] [place] [address] Mar, Blayne Freddy Hypertension I10 IMMUNIZATIONS Vaccine Route Administration Date Status COVID-19 dose #2 given elsewhere Unspecified Unknown Aug 17, 2020 Administered Influenza Pharmacy Given Unknown Apr 28, 2019 Adminis tered Influenza Pharmacy Given Unknown Apr 19, 2020 Adminis tered COVID-19 dose #1 given elsewhere Unspecified Unknown Jul 27, 2020 Administered Influenza 6mo & up Fluzone Unknown Apr 12, 2014 Admin istered Influenza Pharmacy Given Unknown May 21, 2018 Adminis tered Influenza (High Dose 65 & up) IM Intramuscular May 21, 2017 A dministered Influenza (High Dose 65 & up) IM Intramuscular Apr 17, 2016 A dministered Influenza (High Dose 65 & up) IM Intramuscular May 17, 2015 A dministered Zoster 0.65mL Zostavax Unknown January 22, 2011 Administe red Pneumococcal Adult 0.5mL Pneumovax 23 Unknown November 08, 2004 Administered TDAP Unknown January 22, 2010 Administered Pneumococcal 0.5mL Prevnar 13 IM Intramuscular Jul 18, 2015 A dministered SOCIAL HISTORY Tobacco Use: Social History Observation Description Date Details (start date - stop date) Never Smoker Sex Assigned At : Social History Observation Description Sex Assigned At Unknown Audit Question Answer Notes Total Score: 3 Interpretation: Alcohol Education Domestic Violence: Question Answer Notes Status: Sexual Hx: Question Answer Notes Had sex in the last 12 months (vaginal, oral, or anal)? No Have you ever had an STD? No Drug and Alcohol Question Answer Notes Total Score: 0 Interpretation: No problems reported Alcohol Screening: Question Answer Notes Did you have a drink containing alcohol in the past year? Ye s Points 3 Interpretation Positive How often did you have six or more drinks on one occas ion in the past year? Never (0 points) How many drinks did you have on a typica l day when you were drinking in the past year? 1 or 2 (0 points) How often did you have a drink containing alcohol in t he past year? Two to three times per week (3 points) Tobacco Use: Question Answer Notes Are you a: never smoker never smoker REASON FOR REFERRAL No Information VITAL SIGNS No information MEDICATIONS Medication SIG (Take, Route, Frequency, Duration) Notes Start Da te End Date Status Proctosol HC 2.5 % 1 application to affected ar ea Rectal Twice a day as needed for rectal discomfort for 30 days Active Replesta 96903 1 wafer Orally Twice a week Active Climara 0.1 MG/24HR 1 patch to skin Transdermal twice a week for 90 day(s) dispense as written. Brand only November, Not-Raven ng Nasacort Allergy 24HR 55 MCG/ACT 2 spray in each nostril Nasally On ce a day Active Colestipol HCl 1 GM 2 tablets Orally Once a day for 30 day(s) Jan, Active Vagifem 10 MCG 1 tablet Vaginal Two times a Week for 90 day(s) November, Not-Taking Losartan Potassium 100 MG 1/2 tab Orally Daily for 90 days Jul, Active Climara 0.1 MG/24HR 1 patch to skin Transdermal twice a week for 90 day(s) November, Active Verapamil HCl ER 180 MG 1 tablet Orally twice a day for 90 days Active Gaviscon 95-358 MG/15ML 15 ml after meals and at bed time as needed Orally daily as needed Active Metamucil orally Daily Active Vagifem 10 MCG 1 tablet Vaginal Two times a Week for 30 day(s) May, Active Climara 0.1 MG/24HR 1 patch to skin Transdermal weekly for 30 da y(s) May, Active Nystatin 311213 UNIT/ML 4 ml Swish and swallow Mouth /Throat Four times a day for 10 day(s) Feb, Active Acetaminophen Extra Strength 500 mg 2 tablets as needed Orally ever y 6 hrs Active Climara 0.1 MG/24HR 1 patch to skin to clean, dr y skin Transdermal weekly for 90 days Duplicate Not-Taking Carafate 1 GM/10ML 10 ml Orally before meals and bedtime as needed pr n Active hydroCHLOROthiazide 12.5 MG 1 tablet in the morning Or ally Once a day for 90 day(s) Mar, Active Vitamin B12 1000 MCG as directed Orally Jul, Active Diflucan 150 MG 1 tablet Orally Once as needed for vaginitis fo r 10 days Jul, Active Vagifem 10 MCG 1 tablet Vaginal four times a Week for 90 days Duplica te Not-Taking Sertraline HCl 25 MG 1 tablet Orally Once a day for 90 days Jan, Active Aciphex 20 MG 1 tablet Orally Once a day for 90 days Active PROCEDURES No Information RESULTS No Results REASON FOR VISIT stop chlorthalidone, start HCTZ MEDICAL (GENERAL) HISTORY Type Description Date Medical History Hypertension Medical History Palpitations Medical History Gastroesophageal reflux Medical History Irritable bowel syndrome (IBS) Medical History Hypercholesterolemia Medical History Heart murmur Medical History Osteoporosis Medical History Vitamin D deficiency Medical History Seasonal allergic rhinitis due to pollen Medical History anemia Surgical History tonsillectomy as a child Surgical History hysterectomy and appendectomy 1974 Surgical History cholecystectomy 1981 Surgical History breast biopsy 1992 Surgical History anterior and posterior colporrhaphy 1999 Surgical History open left colectomy 02/2008 Surgical History colonoscopy 10/2009 Surgical History Colonoscopy?? 2012 Surgical History Left knee arthroplasty 07/25/2015 Surgical History Colonoscopy 03/2016 Surgical History Right knee arthroplasty 07/22/2016 Surgical History Left eye cataract-Dr. Menchaca 0 Surgical History Right eye cataract extraction 12/2019 Hospitalization History Surgical related Hospitalization History Childbirth Goals Section No Information Health Concerns No Information MEDICAL EQUIPMENT No Information MENTAL STATUS No Information FUNCTIONAL STATUS No Information ASSESSMENTS Encounter Date Diagnosis Assessment Notes Treatment Notes Treatm ent Clinical Notes Mar, Hypertension (ICD-10 - I10) PLAN OF TREATMENT Medication Medication Name Sig Start Date Stop Date Sertraline HCl 25 MG 1 tablet Orally Once a day for 90 days 2020 Nystatin 649998 UNIT/ML 4 ml Swish and swallow Mouth /Throat Four times a day for 10 day(s) Feb, hydroCHLOROthiazide 12.5 MG 1 tablet in the morning Or ally Once a day for 90 day(s) Mar, Colestipol HCl 1 GM 2 tablets Orally Once a day for 30 day(s) Jan, Next Appt Details Provider Name:Blayne Hayes, 2021-07-31 10 :30:00 AM, [address], , [place], [address], Insurance Providers Payer Name Payer Address Payer Phone Insured Name Patient Relati onship to Insured Coverage Start Date Coverage End Date MEDICARE Part A and B [address] [facility] [phone] LIANNE OWENS [employer] [address] [facility] [phone] LIANNE PETERSON self
--- OUTSIDE RECORDS SUMMARY | 2021-06-14 22:26 | CCD | Continuity of Care Document ---
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 Name Role Phone Blayne Hayes MD [facility] [phone] Problems Description No Information Available Social History Type Date Description Comments Sex Unknown Tobacco Use Start: Unknown Never Smoked Cigarettes ETOH Use Social Drinker Tobacco Use Start: Unknown Patient has never smoked Sun Exposure minimum amount of sun exposure Sun Exposure Has experienced blistering from sunburns Sun Exposure Uses > 30 SPF Sun Exposure Has never used tanning bed Allergies, Adverse Reactions, Alerts Active Allergies Criticality Reaction | Severity Comments Date Lisinopril Unable to assess criticality 03/10/2018 Medications Active Medications SIG Qnty Indications Ordering Provide r Date Zyrtec Allergy 10mg Tablets 1 by mouth every day at bedtime 30tabs MALENA Monroy 05/31 Fluticasone Propionate 0.05% Cream apply to affected area sparingly twice a day as needed 15gm MALENA Monroy 05/31/2019 Climara Unknown Vagifem Unknown Metamucil Unknown Aciphex Unknown Verapamil HCL Unknown Losartan Potassium Unknown Replesta NX Unknown Chlorthalidone Unknown Immunizations Description No Information Available Vital Signs Date Vital Result Comment 03/26/2021 10:59am BP Systolic 167 mmHg BP Diastolic 69 mmHg O2 % BldC Oximetry 96 % Heart Rate 83 /min Respiratory Rate 18 /min 03/12/2021 12:39pm BP Systolic 148 mmHg BP Diastolic 72 mmHg Weight 163.00 lb Height 65.5 inches 5'5.50" BMI (Body Mass Index) 26.7 kg/m2 Results Description No Information Available Procedures Date Code Description Status 03/26/2021 67014 Destruction Benign L esions Other Than Skin Tags Or Cutan Vascular Completed 03/12/2021 42956 Office/Outpatient Established Mo d MDM 30-39 Min Completed 03/12/2021 41714 Destruction Of Lesions 2-14 Comp leted 03/12/2021 88642 Destruction Of Lesion First Comp leted Medical Devices Description No Information Available Encounters Type Date Location Provider Dx Diagnosis Office Visit 03/12/2021 12:30p Main Office MEME Celeste-C L57.0 Actinic keratosis D22.5 Melanocytic nevi of trunk D22.72 Melanocytic nevi of left low er limb, including hip L82.1 Other seborrheic keratosis R20.8 Other disturbances of skin s ensation L81.4 Other melanin hyperpigmentat ion Z12.83 Encounter for screening for malignant neoplasm of skin Assessments Date Code Description Provider 03/26/2021 L82.1 Other seborrheic keratosis LAVERNE HurleyP-C 03/26/2021 R20.8 Other disturbances of skin sensa tion MEME Celeste-C 03/12/2021 L57.0 Actinic keratosis LAVERNE VazP-C 03/12/2021 D22.5 Melanocytic nevi of trunk Kathleen LAVERNE GarciaP-C 03/12/2021 D22.72 Melanocytic nevi of left lower l imb, including hip Carline Fontana INSTANT PRINTER OPERATOR-C 03/12/2021 L82.1 Other seborrheic keratosis Juli Fontana INSTANT PRINTER OPERATOR-C 03/12/2021 R20.8 Other disturbances of skin sensa tion Carline Fontana INSTANT PRINTER OPERATOR-C 03/12/2021 L81.4 Other melanin hyperpigmentation Carline Fontana INSTANT PRINTER OPERATOR-C 03/12/2021 Z12.83 Encounter for screening for tram gnant neoplasm of skin Carline Fontana INSTANT PRINTER OPERATOR-C Plan of Treatment Future Appointment(s):* 03/20/2022 8:45 am - OSIRIS Celeste at Main Office 03/26/2021 - OSIRIS Celeste* L82.1 Other seborrheic keratosis* Comments:* LN2 today to 1 SK located on L popliteal due to irritation.Discussed that the areas treated will get red, bubble up/blister, maybe get a little weepy, form a scab then heal. * R20.8 Other disturbances of skin sensation* Comments:* See above. * Follow up:* Has appointment Functional Status Description No Information Available Mental Status Description No Information Available Referrals Description No Information Available
--- OUTSIDE RECORDS SUMMARY | 2021-06-14 22:26 | CCD | Continuity of Care Document ---
Author Author [facility] Organization Unknown Address [address], [address] [place] [address] Phone [phone] Care Team Providers Care Form Raiser Name Role Phone Blayne Hayes MD [facility] [phone] Problems Description No Information Available Social History [...] Available Vital Signs Date Vital Result Comment 03/12/2021 12:39pm BP Systolic 148 mmHg BP Diastolic 72 mmHg Weight 163.00 lb Height 65.5 inches 5'5.50" BMI (Body Mass Index) 26.7 kg/m2 08/29/2020 7:46am BP Systolic 122 mmHg BP Diastolic 70 mmHg Weight 163.00 lb Body Temperature 97.9 F Results Description No Information Available Procedures Date Code Description Status 03/12/2021 48751 Office/Outpatient Established Mo d MDM 30-39 Min Completed 03/12/2021 08911 Destruction Of Lesions 2-14 Comp leted 03/12/2021 22014 Destruction Of Lesion First Comp leted Medical Devices Description No Information Available Encounters Type Date Location Provider Dx Diagnosis Office Visit 03/12/2021 12:30p Main Office OSIRIS Celeste L57.0 Actinic keratosis D22.5 Melanocytic nevi of trunk D22.72 Melanocytic nevi of left low er limb, including hip L82.1 Other seborrheic keratosis R20.8 Other disturbances of skin s ensation L81.4 Other melanin hyperpigmentat ion Z12.83 Encounter for screening for malignant neoplasm of skin Assessments Date Code Description Provider 03/12/2021 L57.0 Actinic keratosis MEME Vaz-C 03/12/2021 D22.5 Melanocytic nevi of trunk Kathleen MEME Garcia-C 03/12/2021 D22.72 Melanocytic nevi of left lower l imb, including hip MEME Celeste-C 03/12/2021 L82.1 Other seborrheic keratosis Juli MEME Ramey-C 03/12/2021 R20.8 Other disturbances of skin sensa tion MEME Celeste-C 03/12/2021 L81.4 Other melanin hyperpigmentation MEME Celeste-C 03/12/2021 Z12.83 Encounter for screening for tram gnant neoplasm of skin OSIRIS Celeste Plan of Treatment Future Appointment(s):* 04/27/2021 11:15 am - OSIRIS Celeste at Main Office * 03/12/2022 8:30 am - OSIRIS Celeste at Main Office 03/12/2021 - Carline R Hegard, GLOBAL MOBILITY SPECIALIST-C* L57.0 Actinic keratosis* Comments:* LN2 to 2 AK's today. Discussed that the areas treated will get red, bubble up /blister, maybe get a little weepy, form a scab then heal. Sunscreen use and sun protection discussed. Contact office if AK's fail to resolve despite treatment. * D22.5 Melanocytic nevi of trunk* Comments:* Nevus on back appears healthy. Monitor for changes. Holman angioma - Reassurance. Sun protection and sunscreen use discussed. Literature given on monthly self skin evaluations Should any moles change in shape or color, itch, bleed or burn, pt will contact office for evaluation sooner than their interval appointment. * D22.72 Melanocytic nevi of left lower limb, including hip* Comments:* Nevus located on L foot appears healthy. Monitor for changes. * L82.1 Other seborrheic keratosis* Comments:* Reassurance. LN2 at next to SK on L popliteal due to irritation. * R20.8 Other disturbances of skin sensation* Comments:* See above. * L81.4 Other melanin hyperpigmentation* Comments:* Sunscreen use and sun protection discussed. * Z12.83 Encounter for screening for malignant neoplasm of skin* Comments:* See above. * Follow up:* Yearly/PRN - FSC LN2 to SK Functional Status Description No Information Available Mental Status Description No Information Available Referrals Description No Information Available
--- NOTE | 2021-06-14 22:55 | REPVR ---
PROCEDURE INFORMATION: Exam: CT Head Without Contrast Exam date and time: 06/14/2021 10:33 PM Age: 80 years old Clinical indication: Altered mental status/memory loss; Confusion or disorientation; Additional info: Alterneterd mental status TECHNIQUE: Imaging protocol: Computed tomography of the head without contrast. Radiation optimization: All CT scans at this facility use at least one of these dose optimization techniques: automated exposure control; mA and/or kV adjustment per patient size (includes targeted exams where dose is matched to clinical indication); or iterative reconstruction. Other technique: STROKE PROTOCOL was implemented. COMPARISON: No relevant prior studies available. FINDINGS: Brain: There is no evidence of intracranial bleed. Cerebral ventricles: No ventriculomegaly. Paranasal sinuses: Clear paranasal sinuses. Mastoid air cells: Clear mastoid air cells. Bones/joints: Unremarkable. No acute fracture. Soft tissues: Unremarkable. Other findings: There is no evidence of acute stroke. IMPRESSION: 1. No evidence of bleed. 2. No evidence of acute stroke. Stroke of less than 24 hours might not be seen on CT. ASSESSMENT: ASPECTS ([place] Stroke Program Early CT Score) is 10. Electronically signed by: Sulaiman Purcell On 06/14/2021 22:55:25 PM
[2021-06-14] MEDS ORDERED: ISOVUE-370 76% 100ML VIAL As Ordered ONE (23:15)
[2021-06-14 23:17] LABS: BASO # 0.1 10^3/uL (0.0-0.2); BASO % 0.6 % (0.0-1.0); EOS # 0.1 10^3/uL (0.0-0.5); EOS % 0.7 % (0.0-3.0); HEMOGLOBIN 14.1 g/dl (12.0-15.5); LYMPH # 2.6 10^3/uL (1.5-5.0); LYMPH % 21.1 % (24.0-44.0); MEAN CORPUSCULAR HEMOGLOBIN 30.3 pg (27.0-33.0); MEAN CORPUSCULAR HGB CONC 33.6 g/dl (32.0-36.5); MEAN CORPUSCULAR VOLUME 90.1 fl (80.0-96.0); MONO # 0.8 10^3/uL (0.0-0.8); MONO % 6.4 % (2.0-8.0); NEUTROPHILS # 8.7 10^3/uL (1.5-8.5); NEUTROPHILS % 70.7 % (36.0-66.0); PLATELET COUNT, AUTOMATED 317 10^3/uL (150-450); RED BLOOD COUNT 4.66 10^6/uL (4.00-5.40); WHITE BLOOD COUNT 12.3 10^3/uL (4.0-10.0)
[2021-06-14] MEDS ORDERED: NS 500 ML IV ONE (23:20)
[2021-06-14] MEDS ORDERED: LABETALOL 100MG/20ML VIAL As Ordered ONE (23:26)
[2021-06-14] MEDS ORDERED: ALTEPLASE 100MG VIAL As Ordered ONE (23:27)
[2021-06-14] MEDS: LABETALOL 100MG/20ML VIAL IV PRN ×2 (23:29→23:40)
[2021-06-14] MEDS ORDERED: ALTEPLASE 100MG VIAL IV ONE (23:30)
[2021-06-14 23:31] LABS: INR 1.02; PROTHROMBIN TIME 13.8 SECONDS (12.7-14.5)
[2021-06-14 23:32] LABS: PARTIAL THROMBOPLASTIN TIME 32.4 SECONDS (25.9-37.0)
--- NOTE | 2021-06-14 23:32 | REPVR ---
PROCEDURE INFORMATION: Exam: XR Chest Exam date and time: 06/14/2021 11:16 PM Age: 80 years old Clinical indication: Other: CVA TECHNIQUE: Imaging protocol: XR of the chest. Views: 1 view. COMPARISON: CR Chest, 2 view PA, Lat 07/09/2016 11:57 AM FINDINGS: Lungs: Unremarkable. No consolidation. Pleural spaces: Unremarkable. No pleural effusion. No pneumothorax. Heart/Mediastinum: Unremarkable. No cardiomegaly. Calcified left hilar lymph nodes unchanged. Bones/joints: Unremarkable. IMPRESSION: No acute findings. Electronically signed by: Sulaiman Purcell On 06/14/2021 23:32:06 PM
--- OUTSIDE RECORDS SUMMARY | 2021-06-14 23:40 | CCD ---
Author Author [facility] Organization [facility] Address Unknown Phone Unavailable Care Team Providers Care Principal Consulting Engineer Name Role Phone DRAZEK, I KEYSHAWN PA Unavailable Unavailable DRAZEK, [...] I KEYSHAWN PA Unavailable Unavailable Hegard, Carline COACH PROFESSIONAL ATHLETES Unavailable Unavailable Hegard, Carline COACH PROFESSIONAL ATHLETES Unavailable Unavailable Hegard, Carline COACH PROFESSIONAL ATHLETES Unavailable Unavailable Hegard, Carline COACH PROFESSIONAL ATHLETES Unavailable Unavailable Hegard, Carline COACH PROFESSIONAL ATHLETES Unavailable Unavailable Hegard, Acrline COACH PROFESSIONAL ATHLETES Unavailable Unavailable Hegard, Carline COACH PROFESSIONAL ATHLETES Unavailable Unavailable Hegard, Carline COACH PROFESSIONAL ATHLETES Unavailable Unavailable Hegard, Carline COACH PROFESSIONAL ATHLETES Unavailable Unavailable Hegard, Carline COACH PROFESSIONAL ATHLETES Unavailable Unavailable Hegard, Carline COACH PROFESSIONAL ATHLETES Unavailable Unavailable Hegard, Carline COACH PROFESSIONAL ATHLETES Unavailable Unavailable Hegard, Carline COACH PROFESSIONAL ATHLETES Unavailable Unavailable Hegard, Carline COACH PROFESSIONAL ATHLETES Unavailable Unavailable Hegard, Carline COACH PROFESSIONAL ATHLETES Unavailable Unavailable Hegard, Carline COACH PROFESSIONAL ATHLETES Unavailable Unavailable Hegard, Carline COACH PROFESSIONAL ATHLETES Unavailable Unavailable Sis SANTANA MD Unavailable Unavailable [...] Unavailable Unavailable Sis SANTANA MD Unavailable Unavailable MAX, E CLARK MD Unavailable Unavailable MAX, E CLARK MD Unavailable Unavailable MAX, E CLARK MD Unavailable Unavailable MAX, E CLARK MD Unavailable Unavailable MAX, E CLARK MD Unavailable Unavailable MAX, E CLARK MD Unavailable Unavailable MAX, E CLARK MD Unavailable Unavailable MAX, E CLARK MD Unavailable Unavailable MAX, E CLARK MD Unavailable Unavailable MAX, E CLARK MD Unavailable Unavailable MAX, E CLARK MD Unavailable Unavailable MAX, E CLARK MD Unavailable Unavailable MAX, E CLARK MD Unavailable Unavailable MAX, E CLARK MD Unavailable Unavailable MAX, E CLARK MD Unavailable Unavailable MAX, E CLARK MD Unavailable Unavailable MAX, E CLARK MD Unavailable Unavailable MAX, E CLARK MD Unavailable Unavailable MAX, E CLARK MD Unavailable Unavailable AMX, E CLARK MD Unavailable Unavailable MAX, E CLARK MD Unavailable Unavailable MAX, E CLARK MD Unavailable Unavailable MAX, E CLARK MD Unavailable Unavailable MAX, E CLARK MD Unavailable Unavailable MAX, E CLARK MD Unavailable Unavailable MAX, E CLARK MD Unavailable Unavailable MAX, E CLARK MD Unavailable Unavailable Re-disclosure Warning The records that [...] is protected by Article 27-F of the [facility] Public Health law. If you continue you may have access to information: Regarding HIV / AIDS; Provided by facilities licensed or operated by the [facility] Office of Mental Health; or Provided by the [facility] Office for People With Developmental Disabilities. If such information is present, then the following [facility] mandated warning applies: This information has been [...] law may result in a fine or alf sentence or both. A general authorization for the release of medical or other information is NOT sufficient authorization for further disc losure. Family History Family Member Name Family Member Gender Family Member Status Date o f Status Description Data Source(s) Unknown Unknown Problem MEDENT ([facility]) Unknown Female Problem MEDENT ([facility]) Encounters Encounter Providers Location Date Indications Data Source(s ) Unknown [address] [facility] [address] 04/04/2021 12:00:00 AM EDT eCW1 ([facility]) Outpatient Attender: Carline Fontana [facility] Main Office 0 03/12/2021 12:30:00 PM EDT MEDENT ([facility]) Unknown [address] [facility] [address] 02/13/2021 12:00:00 AM EDT eCW1 ([facility]) [place] [address] [facility] [place] [address] 01/30/2021 12:00:00 AM EDT eCW1 ([facility]) Unknown [address] [facility] [address] 01/23/2021 12:00:00 AM EDT eCW1 ([facility]) Unknown [address] 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 [place] [address] 11/20/2020 12:00:00 AM EDT eCW1 ([facility]) Outpatient Attender: CLARK SANTANA MD 11/13/2020 12:00:00 AM EDT [facility] [place] [address] [facility] [address] 10/05/2020 12:00:00 AM EDT eCW1 ([facility]) Unknown [address] [facility] [address] 09/26/2020 12:00:00 AM EDT eCW1 ([facility]) Office Visit Attender: KEYSHAWN MIRANDA Physical Therapy 2020 08:45:00 AM EST MEDENT ([facility]) Out[place] [address] [facility] [address] 07/19/2020 12:00:00 AM EST eCW1 ([facility]) Unknown [address] [facility] [address] 05/29/2020 12:00:00 AM EST eCW1 ([facility]) OFFICE OUTPATIENT VISIT 15 MINUTES Attender: KEYSHAWN MIRANDA Phys ical Therapy 05/02/2020 03:45:00 PM EDT MEDENT ([facility]) Immunizations Vaccine Date Status Description Data Source(s) COVID-19 VACCINE Pfizer 04/26/2021 12:00:00 AM EDT completed [facility] Vaccine Series Complete: YESThis Data wa s Submitted to [facility] Via [facility]. COVID-19 dose #2 given elsewhere Unspecified 08/17/2020 05:4 2:00 AM EST completed eCW1 ([facility]) COVID-19 dose #2 given elsewhere Unspecified 08/17/2020 05:4 2:00 AM EST completed eCW1 ([facility]) COVID-19 dose #2 given elsewhere Unspecified 08/17/2020 05:4 2:00 AM EST completed eCW1 ([facility]) COVID-19 dose #2 given elsewhere Unspecified 08/17/2020 05:4 2:00 AM EST completed eCW1 ([facility]) COVID-19 VACCINE Pfizer 08/17/2020 12:00:00 AM EST completed [facility] Vaccine Series Complete: YESThis Data wa s Submitted to [facility] [employer]. COVID-19 dose #1 given elsewhere Unspecified 07/27/2020 05:4 2:00 AM EST completed eCW1 ([facility]) COVID-19 dose #1 given elsewhere Unspecified 07/27/2020 05:4 2:00 AM EST completed eCW1 ([facility]) COVID-19 dose #1 given elsewhere Unspecified 07/27/2020 05:4 2:00 AM EST completed eCW1 ([facility]) COVID-19 dose #1 given elsewhere Unspecified 07/27/2020 05:4 2:00 AM EST completed eCW1 ([facility]) COVID-19 VACCINE Pfizer 07/27/2020 12:00:00 AM EST completed [facility] Vaccine Series Complete: NOThis Data was Submitted to [facility] Via [employer]. IIV3. This is one of two codes replacing CVX 15, which is being retired. 04/19/2020 09:12:00 AM EDT completed eCW1 ([facility]) IIV3. This is one of two codes replacing CVX 15, which is being retired. 04/19/2020 09:12:00 AM EDT completed eCW1 ([facility]) IIV3. This is one of two codes replacing CVX 15, which is being retired. 04/19/2020 09:12:00 AM EDT completed eCW1 ([facility]) IIV3. This is one of two codes replacing CVX 15, which is being retired. 04/19/2020 09:12:00 AM EDT completed eCW1 ([facility]) IIV3. This is one of two codes replacing CVX 15, which is being retired. 04/19/2020 09:12:00 AM EDT completed eCW1 ([facility]) IIV3. This is one of two codes replacing CVX 15, which is being retired. 04/19/2020 09:12:00 AM EDT completed eCW1 ([facility]) IIV3. This is one of two codes replacing CVX 15, which is being retired. 04/19/2020 09:12:00 AM EDT completed eCW1 ([facility]) IIV3. This is one of two codes replacing CVX 15, which is being retired. 04/19/2020 09:12:00 AM EDT completed eCW1 ([facility]) IIV3. This is one of two codes replacing CVX 15, which is being retired. 04/19/2020 09:12:00 AM EDT completed eCW1 ([facility]) IIV3. This is one of two codes replacing CVX 15, which is being retired. 04/19/2020 09:12:00 AM EDT completed eCW1 ([facility]) Medications Medication Brand Name Start Date Product [...] {tablet_in_the_morning} active hydroCHL OROthiazide 12.5 MG eCW1 ([facility]) Nystatin 039714 UNT/ML Oral Suspension Nystatin 536683 UNIT/ML Nystatin 605819 UNIT/ML 02/13/2021 12:00:00 AM EDT active Nystatin 544899 UNIT/ML eCW1 ([facility]) Nystatin 850328 UNT/ML Oral Suspension Nystatin 626954 UNIT/ML Nystatin 383061 UNIT/ML 02/13/2021 12:00:00 AM EDT active eCW1 ([facility]) Sertraline 25 MG Oral Tablet Sertraline HCl 25 MG Sertraline HCl 25 MG 01/30/2021 12:00:00 AM EDT 1.0 {tablet} active Sertraline HCl 25 MG eCW1 ([facility]) Colestipol Hydrochloride 1000 MG Oral Tablet Colestipo l HCl 1 GM Colestipol HCl 1 GM 01/30/2021 12:00:00 AM EDT 2.0 {tablets} acti ve Colestipol HCl 1 GM eCW1 ([facility]) Colestipol Hydrochloride 1000 MG Oral Tablet Colestipo l HCl 1 GM Colestipol HCl 1 GM 01/30/2021 12:00:00 AM EDT 2.0 {tablets} acti ve Colestipol HCl 1 GM eCW1 ([facility]) Sertraline 25 MG Oral Tablet Sertraline HCl 25 MG Sertraline HCl 25 MG 01/30/2021 12:00:00 AM EDT 1.0 {tablet} active eCW1 ([facility]) Colestipol Hydrochloride 1000 MG Oral Tablet Colestipo l HCl 1 GM Colestipol HCl 1 GM 01/30/2021 12:00:00 AM EDT 2.0 {tablets} active eCW1 ([facility]) Sertraline 25 MG Oral Tablet Sertraline HCl 25 MG Sertraline HCl 25 MG 01/30/2021 12:00:00 AM EDT 1.0 {tablet} active Sertraline HCl 25 MG eCW1 ([facility]) 168 HR Estradiol 0.85319 MG/HR Transdermal Patch [Clim sandi] Climara 0.1 MG/24HR Climara 0.1 MG/24HR 12/03/2020 12:00:00 AM EDT 1.0 {patch_to_skin} suspended Climara 0.1 MG/24HR eCW1 ([facility]) 168 HR Estradiol 0.07208 MG/HR Transdermal Patch [Clim sandi] Climara 0.1 MG/24HR Climara 0.1 MG/24HR 12/03/2020 12:00:00 AM EDT 1.0 {patch_to_skin} active Climara 0.1 MG/24HR eCW1 ([facility]) 168 HR Estradiol 0.74231 MG/HR Transdermal Patch [Clim sandi] Climara 0.1 MG/24HR Climara 0.1 MG/24HR 12/03/2020 12:00:00 AM EDT 1.0 {patch_to_skin} suspended eCW1 ([facility]) 168 HR Estradiol 0.61378 MG/HR Transdermal Patch [Clim sandi] Climara 0.1 MG/24HR Climara 0.1 MG/24HR 12/03/2020 12:00:00 AM EDT 1.0 {patch_to_skin} active Climara 0.1 MG/24HR eCW1 ([facility]) 168 HR Estradiol 0.03516 MG/HR Transdermal Patch [Clim sandi] Climara 0.1 MG/24HR Climara 0.1 MG/24HR 12/03/2020 12:00:00 AM EDT 1.0 {patch_to_skin} suspended Climara 0.1 MG/24HR eCW1 ([facility]) 168 HR Estradiol 0.09486 MG/HR Transdermal Patch [Clim sandi] Climara 0.1 MG/24HR Climara 0.1 MG/24HR 12/03/2020 12:00:00 AM EDT 1.0 {patch_to_skin} active Climara 0.1 MG/24HR eCW1 ([facility]) 168 HR Estradiol 0.12536 MG/HR Transdermal Patch [Clim sandi] Climara 0.1 MG/24HR Climara 0.1 MG/24HR 11/27/2020 12:00:00 AM EDT 1.0 {patch_to_skin} active Climara 0.1 MG/24HR eCW1 ([facility]) Estradiol 0.01 MG Vaginal Tablet [Vagifem] Vagifem 10 MCG Va gifem 10 MCG 11/27/2020 12:00:00 AM EDT 1.0 {tablet} suspended Vagifem 10 MCG eCW1 ([facility]) 168 HR Estradiol 0.39523 MG/HR Transdermal Patch [Clim sandi] Climara 0.1 MG/24HR Climara 0.1 MG/24HR 11/27/2020 12:00:00 AM EDT 1.0 {patch_to_skin} active eCW1 ([facility]) Estradiol 0.01 MG Vaginal Tablet [Vagifem] Vagifem 10 MCG Va gifem 10 MCG 11/27/2020 12:00:00 AM EDT 1.0 {tablet} active Vagifem 10 MCG eCW1 ([facility]) Estradiol 0.01 MG Vaginal Tablet [Vagifem] Vagifem 10 MCG Va gifem 10 MCG 11/27/2020 12:00:00 AM EDT 1.0 {tablet} active Vagifem 10 MCG eCW1 ([facility]) Estradiol 0.01 MG Vaginal Tablet [Vagifem] Vagifem 10 MCG Va gifem 10 MCG 11/27/2020 12:00:00 AM EDT 1.0 {tablet} active Vagifem 10 MCG eCW1 ([facility]) Estradiol 0.01 MG Vaginal Tablet [Vagifem] Vagifem 10 MCG Va gifem 10 MCG 11/27/2020 12:00:00 AM EDT 1.0 {tablet} suspended eCW1 ([facility]) 168 HR Estradiol 0.16185 MG/HR Transdermal Patch [Clim sandi] Climara 0.1 MG/24HR Climara 0.1 MG/24HR 11/27/2020 12:00:00 AM EDT 1.0 {patch_to_skin} active Climara 0.1 MG/24HR eCW1 ([facility]) 168 HR Estradiol 0.87773 MG/HR Transdermal Patch [Clim sandi] Climara 0.1 MG/24HR Climara 0.1 MG/24HR 11/27/2020 12:00:00 AM EDT 1.0 {patch_to_skin} active Climara 0.1 MG/24HR eCW1 ([facility]) 168 HR Estradiol 0.04890 MG/HR Transdermal Patch [Clim sandi] Climara 0.1 MG/24HR Climara 0.1 MG/24HR 11/27/2020 12:00:00 AM EDT 1.0 {patch_to_skin} active Climara 0.1 MG/24HR eCW1 ([facility]) 168 HR Estradiol 0.43466 MG/HR Transdermal Patch [Clim sandi] Climara 0.1 MG/24HR Climara 0.1 MG/24HR 11/27/2020 12:00:00 AM EDT 1.0 {patch_to_skin} active Climara 0.1 MG/24HR eCW1 ([facility]) Estradiol 0.01 MG Vaginal Tablet [Vagifem] Vagifem 10 MCG Va gifem 10 MCG 11/27/2020 12:00:00 AM EDT 1.0 {tablet} suspended Vagifem 10 MCG eCW1 ([facility]) 25 mg 07/24/2020 12:00:00 AM EST [...] EST active Losartan Potassium 100 MG eCW1 ([facility]) Losartan Potassium 100 MG Oral Tablet Losartan Potassium 100 MG 07/19/2020 12:00:00 AM EST active Losartan Potassium 100 MG eCW1 ([facility]) Losartan Potassium 100 MG Oral Tablet Losartan Potassium 100 MG 07/19/2020 12:00:00 AM EST active Losartan Potassium 100 MG eCW1 ([facility]) Losartan Potassium 100 MG Oral Tablet Losartan Potassium 100 MG 07/19/2020 12:00:00 AM EST active Losartan Potassium 100 MG eCW1 ([facility]) Losartan Potassium 100 MG Oral Tablet Losartan Potassium 100 MG 07/19/2020 12:00:00 AM EST active Losartan Potassium 100 MG eCW1 ([facility]) Losartan Potassium 100 MG Oral Tablet Losartan Potassium 100 MG 07/19/2020 12:00:00 AM EST active Losartan Potassium 100 MG eCW1 ([facility]) Losartan Potassium 100 MG Oral Tablet Losartan Potassium 100 MG 07/19/2020 12:00:00 AM EST active Losartan Potassium 100 MG eCW1 ([facility]) Losartan Potassium 100 MG Oral Tablet Losartan Potassium 100 MG 07/19/2020 12:00:00 AM EST active Losartan Potassium 100 MG eCW1 ([facility]) Losartan Potassium 100 MG Oral Tablet Losartan Potassium 100 MG 07/19/2020 12:00:00 AM EST active Losartan Potassium 100 MG eCW1 ([facility]) Losartan Potassium 100 MG Oral Tablet Losartan Potassium 100 MG 07/19/2020 12:00:00 AM EST active e CW1 ([facility]) 168 HR Estradiol 0.61176 MG/HR Transdermal Patch [Clim sandi] Climara 0.1 MG/24HR Climara 0.1 MG/24HR 05/29/2020 12:00:00 AM EST 1.0 {patch_to_skin} active Climara 0.1 MG/24HR eCW1 ([facility]) 168 HR Estradiol 0.74542 MG/HR Transdermal Patch [Clim sandi] Climara 0.1 MG/24HR Climara 0.1 MG/24HR 05/29/2020 12:00:00 AM EST 1.0 {patch_to_skin} active Climara 0.1 MG/24HR eCW1 ([facility]) 168 HR Estradiol 0.63135 MG/HR Transdermal Patch [Clim sandi] Climara 0.1 MG/24HR Climara 0.1 MG/24HR 05/29/2020 12:00:00 AM EST 1.0 {patch_to_skin} active Climara 0.1 MG/24HR eCW1 ([facility]) 168 HR Estradiol 0.38654 MG/HR Transdermal Patch [Clim sandi] Climara 0.1 MG/24HR Climara 0.1 MG/24HR 05/29/2020 12:00:00 AM EST 1.0 {patch_to_skin} active Climara 0.1 MG/24HR eCW1 ([facility]) 168 HR Estradiol 0.01442 MG/HR Transdermal Patch [Clim sandi] Climara 0.1 MG/24HR Climara 0.1 MG/24HR 05/29/2020 12:00:00 AM EST 1.0 {patch_to_skin} active Climara 0.1 MG/24HR eCW1 ([facility]) Estradiol 0.01 MG Vaginal Tablet [Vagifem] Vagifem 10 MCG Va gifem 10 MCG 05/29/2020 12:00:00 AM EST 1.0 {tablet} active Vagifem 10 MCG eCW1 ([facility]) 168 HR Estradiol 0.42378 MG/HR Transdermal Patch [Clim sandi] Climara 0.1 MG/24HR Climara 0.1 MG/24HR 05/29/2020 12:00:00 AM EST 1.0 {patch_to_skin} active Climara 0.1 MG/24HR eCW1 ([facility]) Estradiol 0.01 MG Vaginal Tablet [Vagifem] Vagifem 10 MCG Va gifem 10 MCG 05/29/2020 12:00:00 AM EST 1.0 {tablet} active Vagifem 10 MCG eCW1 ([facility]) Estradiol 0.01 MG Vaginal Tablet [Vagifem] Vagifem 10 MCG Va gifem 10 MCG 05/29/2020 12:00:00 AM EST 1.0 {tablet} active Vagifem 10 MCG eCW1 ([facility]) Estradiol 0.01 MG Vaginal Tablet [Vagifem] Vagifem 10 MCG Va gifem 10 MCG 05/29/2020 12:00:00 AM EST 1.0 {tablet} active Vagifem 10 MCG eCW1 ([facility]) Estradiol 0.01 MG Vaginal Tablet [Vagifem] Vagifem 10 MCG Va gifem 10 MCG 05/29/2020 12:00:00 AM EST 1.0 {tablet} active Vagifem 10 MCG eCW1 ([facility]) 168 HR Estradiol 0.77076 MG/HR Transdermal Patch [Clim sandi] Climara 0.1 MG/24HR Climara 0.1 MG/24HR 05/29/2020 12:00:00 AM EST 1.0 {patch_to_skin} active Climara 0.1 MG/24HR eCW1 ([facility]) 168 HR Estradiol 0.34814 MG/HR Transdermal Patch [Clim sandi] Climara 0.1 MG/24HR Climara 0.1 MG/24HR 05/29/2020 12:00:00 AM EST 1.0 {patch_to_skin} active eCW1 ([facility]) Estradiol 0.01 MG Vaginal Tablet [Vagifem] Vagifem 10 MCG Va gifem 10 MCG 05/29/2020 12:00:00 AM EST 1.0 {tablet} active Vagifem 10 MCG eCW1 ([facility]) Estradiol 0.01 MG Vaginal Tablet [Vagifem] Vagifem 10 MCG Va gifem 10 MCG 05/29/2020 12:00:00 AM EST 1.0 {tablet} active Vagifem 10 MCG eCW1 ([facility]) Estradiol 0.01 MG Vaginal Tablet [Vagifem] Vagifem 10 MCG Va gifem 10 MCG 05/29/2020 12:00:00 AM EST 1.0 {tablet} active eCW1 ([facility]) Estradiol 0.01 MG Vaginal Tablet [Vagifem] Vagifem 10 MCG Va gifem 10 MCG 05/29/2020 12:00:00 AM EST 1.0 {tablet} active Vagifem 10 MCG eCW1 ([facility]) 168 HR Estradiol 0.32248 MG/HR Transdermal Patch [Clim sandi] Climara 0.1 MG/24HR Climara 0.1 MG/24HR 05/29/2020 12:00:00 AM EST 1.0 {patch_to_skin} active Climara 0.1 MG/24HR eCW1 ([facility]) 168 HR Estradiol 0.63031 MG/HR Transdermal Patch [Clim sandi] Climara 0.1 MG/24HR Climara 0.1 MG/24HR 05/29/2020 12:00:00 AM EST 1.0 {patch_to_skin} active Climara 0.1 MG/24HR eCW1 ([facility]) Estradiol 0.01 MG Vaginal Tablet [Vagifem] Vagifem 10 MCG Va gifem 10 MCG 05/29/2020 12:00:00 AM EST 1.0 {tablet} active Vagifem 10 MCG eCW1 ([facility]) Estradiol 0.01 MG Vaginal Tablet [Vagifem] Vagifem 10 MCG Va gifem 10 MCG 05/29/2020 12:00:00 AM EST 1.0 {tablet} active Vagifem 10 MCG eCW1 ([facility]) 168 HR Estradiol 0.31840 MG/HR Transdermal Patch [Clim sandi] Climara 0.1 MG/24HR Climara 0.1 MG/24HR 05/29/2020 12:00:00 AM EST 1.0 {patch_to_skin} active Climara 0.1 MG/24HR eCW1 ([facility]) Insurance Providers Payer name Policy type / Coverage type Policy ID Covered libertarian ID Covered libertarian's relationship to gonzales Policy Gonzales Plan Information PROCLAIM [facility] [id number] MEDICARE [id number] SP [id number] A MEDICARE A [id number] Self [id number] MEDICARE A [id number] Self [id number] A Medicare Part B [facility] [id number] 0 [id number] Medicare Part B [facility] [id number] 0 [id number] FOR LIFE [id number] SP [id number] FOR LIFE U [id number] Spouse [id number] [place] Primary [id number] Self [id number] [place] [facility] [id number] Family Dep endent [place] Primary [id number] Self [place] [facility] [id number] Family Dependent 0 [id number] [place] Primary [id number] Self [id number] [place] [employer] [employer] (TFL[place] [facility] Part B [id number] Family Dependent 0 [id number] [place] Primary [id number] Self [id number] [place] [employer] [employer] (TFL[place] [facility] Part B [id number] Family Dependent 0 [id number] [place] Primary [id number] Self 4 [id number] [place] [employer] [employer] (TFL) [facility] Part B [id number] Family Dependent 0 [id number] [place] Primary [id number] Self 4 [id number] [place] [employer] [employer] (TFL) [facility] Part B [id number] Family Dependent 0 [id number] [place] Primary [id number] Self 4 [id number] [place] [employer] [employer] (TFL) [facility] Part B [id number] Family Dependent 0 [id number] [place] Primary [id number] Self 0 [id number] [place] [employer] [employer] (TFL[place] [facility] Part B [id number] Family Dependent 0 [id number] [place] [employer] [employer] (TFL) [facility] Part B [id number] Family Dependent 0 [id number] [place] Primary [id number] Self 0 [id number] [place] [employer] [employer] (TFL) [facility] Part B [id number] Family Dependent [id number] [place] Primary [id number] Self [id number] [place] [employer] [employer] (TFL[facility] [id number] Family Dependent [id number] [place] Primary [id number] Self 0 [id number] [place] [facility] [employer] (TFL) [facility] [id number] Family Dependent [id number] [place] Primary [id number] Self 0 [id number] [place] Primary [id number] Self 0 [id number] [place] [employer] [employer] (TFL) [facility] [id number] Family Dependent [id number] [place] Primary [id number] Self [id number] [place] [employer] (TFL[place] [employer] Part B [id number] Family Dependent 0 [id number] [place] Primary [id number] Self 0 [id number] [place] [employer] [employer] (TFL) Med[employer]ap Part B [id number] Family Dependent 0 [id number] [place] Primary [id number] Self [id number] [facility] (TFL) Medigap Part B [id number] Family Dependent 0 [id number] FOR LIFE U [id number] Spouse 0 [id number] FOR LIFE [id number] SP [id number] A FOR LIFE [id number] SP [id number] MEDICARE PART A -O/P [id number] 18 [id number] MEDICARE PART A -O/P [id number] 18 [id number] FOR LIFE -O/P CO [id number] 18 [id number] FOR LIFE -O/[place] [id number] 18 [id number] FOR LIFE [id number] [id number] [facility] MEDICARE PART A [facility] [id number] 18 [id number] ANSI-Medicare Part B [id number] ANSI-Commercial [id number] ANSI-Commercial [id number] ANSI-Medicare Part B [id number] ANS-Medicare Part B [id number] ANSI-Commercial [id number] MEDICARE [id number] SP [id number] A FOR LIFE O [id number] S [id number] MEDICARE C [id number] S [id number] A WPS For Life Medigap Part B [id number] Family Depende nt [place] Medicare Primary 4831 Self BCBS [place] [phone] [id number] SP [id number] 0 0 0 Medicare Part B [facility] 0 0 0 [id number] 0 [id number] MEDICARE [id number] Problems, Conditions, and Diagnoses Code Display Name Description Problem Type Effective Dates Data Source(s) F34.1 [id number] Dysthymia Problem 01/30/2021 12:00:00 AM ED T eCW1 ([facility]) H90.3 [id number] Sensorineural hearing loss (SNHL) of both ears Problem 07/19/2020 12:00:00 AM EST eCW1 ([facility]) Surgeries/Procedures Procedure Description Date Indications Data Source(s) DESTRUCTION BENIGN LESIONS UP TO 14 03/26/2021 12:00:0 0 AM EDT [facility] ([facility]) DESTRUCTION PREMALIGNANT LESION 1ST 03/12/2021 12:00:0 0 AM EDT [facility] ([facility]) DESTRUCTION PREMALIGNANT LESION 2-14 EA 03/12/2021 12: 00:00 AM EDT [facility] ([facility]) OFFICE OUTPATIENT VISIT 25 MINUTES 03/12/2021 12:00:00 AM EDT MED[facility] ([facility]) ARTHROCENTESIS ASPIR&/INJECTION MAJOR JT/BURSA 021 12:00:00 AM EST MED[facility] ([facility] ) X-Ray Hip Unilateral With Pelvis 2-3 Views 09/22/2020 12:00:00 AM EST MED[facility] ([facility] ) ARTHROCENTESIS ASPIR&/INJECTION MAJOR JT/BURSA 020 12:00:00 AM EDT [facility] ([facility] ) Results No Information Social History Code Duration Value Status Description Data Source(s ) Smoking 01/30/2021 12:00:00 AM EDT Never Smoker completed Never S moker eCW1 ([facility]) Smoking 01/30/2021 12:00:00 AM EDT Never Smoker completed Never S moker eCW1 ([facility]) Smoking 01/30/2021 12:00:00 AM EDT Never Smoker completed Never S moker eCW1 ([facility]) Smoking 01/23/2021 12:00:00 AM EDT Never Smoker completed Never S moker eCW1 ([facility]) Smoking 11/27/2020 12:00:00 AM EDT Never Smoker completed Never S moker eCW1 ([facility]) Smoking 11/27/2020 12:00:00 AM EDT Never Smoker completed Never S moker eCW1 ([facility]) Smoking 09/22/2020 12:00:00 AM EST Patient has never smoked co mpleted Patient has never smoked MED[facility] ([facility] ) Smoking 07/19/2020 12:00:00 AM EST Never Smoker completed Never S moker eCW1 ([facility]) Smoking 07/19/2020 12:00:00 AM EST Never Smoker completed Never S moker eCW1 ([facility]) Smoking 07/19/2020 12:00:00 AM EST Never Smoker completed Never S moker eCW1 ([facility]) Smoking 07/19/2020 12:00:00 AM EST Never Smoker completed Never S moker eCW1 ([facility]) Vital Signs ID Date Data Source UNK Name Value Range Interpretation Code Description Data Source(s) Heart rate 83 /min 83 /min [facility] ([facility]) Respiratory rate 18 /min 18 /min [facility] ( [facility]) Systolic blood pressure 167 mm[Hg] 167 mm[Hg] M EDENT ([facility]) Diastolic blood pressure 69 mm[Hg] 69 mm[Hg] [facility] ([facility]) Oxygen saturation in Arterial blood by Pulse oximetry 96 % 96 % [facility] ([facility]) Systolic blood pressure 148 mm[Hg] 148 mm[Hg] M EDENT ([facility]) Diastolic blood pressure 72 mm[Hg] 72 mm[Hg] [facility] ([facility]) Body weight 163.00 [lb_av] 163.00 [lb_av] MEDEN T ([facility]) Body height 65.5 [in_i] 65.5 [in_i] MEDENT ([facility]) 5'5.50" Body mass index (BMI) [Ratio] 26.7 kg/m2 26.7 k g/m2 [facility] ([facility]) Systolic blood pressure 142 mm[Hg] 142 mm[Hg] e CW1 ([facility]) Body weight 166.4 [lb_av] 166.4 [lb_av] eCW1 ([facility]) Body height 65.5 [in_i] 65.5 [in_i] eCW1 ([facility]) Body mass index (BMI) [Ratio] 27.27 kg/m2 27.27 kg/m2 W1 ([facility]) Heart rate 78 /min 78 /min eCW1 ([facility]) Respiratory rate 18 /min 18 /min eCW1 ([facility]) Body temperature 97.9 [degF] 97.9 [degF] eCW1 ( [facility]) Diastolic blood pressure 66 mm[Hg] 66 mm[Hg] eCW1 ([facility]) Body weight 171.8 [lb_av] 171.8 [lb_av] eCW1 ([facility]) Body height 65.5 [in_i] 65.5 [in_i] eCW1 ([facility]) Body mass index (BMI) [Ratio] 28.15 kg/m2 28.15 kg/m2 eCW1 ([facility]) Systolic blood pressure 144 mm[Hg] 144 mm[Hg] e CW1 ([facility]) Diastolic blood pressure mm[Hg] eCW1 ([facility]) Body temperature 97.9 [degF] 97.9 [degF] [facility] ([facility]) Systolic blood pressure 122 mm[Hg] 122 mm[Hg] M EDENT ([facility]) Diastolic blood pressure 70 mm[Hg] 70 mm[Hg] [facility] ([facility]) Body weight 163.00 [lb_av] 163.00 [lb_av] MEDEN T ([facility]) Body weight 171.8 [lb_av] 171.8 [lb_av] eCW1 ([facility]) Body height 65.5 [in_i] 65.5 [in_i] eCW1 ([facility]) Body mass index (BMI) [Ratio] 28.15 kg/m2 28.15 kg/m2 eCW1 ([facility]) Heart rate 86 /min 86 /min eCW1 ([facility]) Respiratory rate 18 /min 18 /min eCW1 ([facility]) Body temperature 97.8 [degF] 97.8 [degF] eCW1 ( [facility]) Systolic blood pressure 158 mm[Hg] 158 mm[Hg] e CW1 ([facility]) Diastolic blood pressure 78 mm[Hg] 78 mm[Hg] eCW1 ([facility]) Body temperature 97.1 [degF] 97.1 [degF] MEDENT ([facility]) Patient Treatment Plan of Care Planned Activity Planned Date Details Description Data Source (s) Hydrochlorothiazide 12.5 MG Oral Tablet 04/04/2021 12:00:00 AM EDT eCW1 ([facility]) Nystatin 007657 UNT/ML Oral Suspension 02/13/2021 12:00:00 AM EDT eCW1 ([facility]) Nystatin 862527 UNT/ML Oral Suspension 02/13/2021 12:00:00 AM EDT eCW1 ([facility]) Sertraline 25 MG Oral Tablet 01/30/2021 12:00:00 AM EDT eCW1 ([facility]) Colestipol Hydrochloride 1000 MG Oral Tablet 01/30/2021 12:00:00 AM EDT eCW1 ([facility]) Sertraline 25 MG Oral Tablet 01/30/2021 12:00:00 AM EDT eCW1 ([facility]) Colestipol Hydrochloride 1000 MG Oral Tablet 01/30/2021 12:00:00 AM EDT eCW1 ([facility]) Colestipol Hydrochloride 1000 MG Oral Tablet 01/30/2021 12:00:00 AM EDT eCW1 ([facility]) Sertraline 25 MG Oral Tablet 01/30/2021 12:00:00 AM EDT eCW1 ([facility]) 168 HR Estradiol 0.98393 MG/HR Transdermal Patch [Clim sandi] 12/03/2020 12:00:00 AM EDT eCW1 ([facility]) 168 HR Estradiol 0.02388 MG/HR Transdermal Patch [Clim sandi] 12/03/2020 12:00:00 AM EDT eCW1 ([facility]) 168 HR Estradiol 0.46129 MG/HR Transdermal Patch [Clim sandi] 11/27/2020 12:00:00 AM EDT eCW1 ([facility]) Estradiol 0.01 MG Vaginal Tablet [Vagifem] 11/27/2020 12:00:00 AM E DT eCW1 ([facility]) 168 HR Estradiol 0.89626 MG/HR Transdermal Patch [Clim sandi] 11/27/2020 12:00:00 AM EDT eCW1 ([facility]) Estradiol 0.01 MG Vaginal Tablet [Vagifem] 11/27/2020 12:00:00 AM E DT eCW1 ([facility]) Losartan Potassium 100 MG Oral Tablet 07/19/2020 12:00:00 AM EST eCW1 ([facility]) Losartan Potassium 100 MG Oral Tablet 07/19/2020 12:00:00 AM EST eCW1 ([facility]) Losartan Potassium 100 MG Oral Tablet 07/19/2020 12:00:00 AM EST eCW1 ([facility]) Losartan Potassium 100 MG Oral Tablet 07/19/2020 12:00:00 AM EST eCW1 ([facility]) Estradiol 0.01 MG Vaginal Tablet [Vagifem] 05/29/2020 12:00:[address] eCW1 ([facility]) 168 HR Estradiol 0.89352 MG/HR Transdermal Patch [Clim sandi] 05/29/2020 12:00:00 AM EST eCW1 ([facility])
[2021-06-14 23:44] VITALS: BP 182/88
[2021-06-14] MEDS ORDERED: ONDANSETRON 4MG/2ML VIAL IV ONE (23:45)
[2021-06-14] MEDS ORDERED: ALTEPLASE RECOMBINANT IV ONE (23:45)
[2021-06-15 00:10] VITALS: BP 193/91
[2021-06-15] MEDS ORDERED: LABETALOL HCL 200 MG in D5W 160 ML IV SCH ×2 (00:10→00:35)
[2021-06-15 00:11] LABS: RSV AMPLIFICATION NEGATIVE (NEGATIVE)
[2021-06-15] MEDS ORDERED: SODIUM CHLORIDE 0.9% 50 ML IV ONE (00:30)
[2021-06-15 00:59] VITALS: BP 160/73
--- NOTE | 2021-06-15 01:11 | ECGEPIP ---
[facility] - ED Test Date: 2021-06-14 Pat Name: LIANNE WHITE Department: Room: - Gender: Female Nail Kegger: [place] CORREAB: 1940 Requested By: Luke Alvarez Order Number: [id number] Reading MD: Luke Laws Measurements Intervals [place] Rate: 102 P: 54 LA: 228 QRS: 34 QRSD: 82 T: 35 QT: 352 QTc: 458 Interpretive Statements Sinus tachycardia with 1st degree AV block POOR R WAVE PROGRESSION SIMILAR TO 07/09/16 Electronically Signed on 06-15-2021 1:11:27 EST by Luke Laws
[2021-07-10] MEDS ORDERED: ATOR40TA75 (09:45)
[2021-07-10] MEDS ORDERED: CLOP75TA2 (09:45)
[2021-07-10] MEDS ORDERED: VITA40TA PO (09:54)
[2021-07-10] MEDS ORDERED: COLA100C5 PO (09:54)
[2021-07-10] MEDS ORDERED: ECOT81TA5 PO (09:54)
[2021-07-10] MEDS ORDERED: CYAN100050 PO (09:54)
== END 2021-06-15 01:01 | disposition short-term general hospital (02) ==
LOC: M ED 22:18
DX: I63.50 Cerebral infarction due to unspecified occlusion or stenosis of unspecified cerebral artery (principal); I44.0 Atrioventricular block, first degree; I10 Essential (primary) hypertension; I48.91 Unspecified atrial fibrillation; E78.5 Hyperlipidemia, unspecified; D64.9 Anemia, unspecified; K21.9 Gastro-esophageal reflux disease without esophagitis; M81.0 Age-related osteoporosis without current pathological fracture; Z88.8 Allergy status to other drugs, medicaments and biological substances; Z88.5 Allergy status to narcotic agent; Z79.899 Other long term (current) drug therapy
CPT/HCPCS: 70450; 71045; 80047; 84484; 84702; 85025; 85610; 85730; 87631; 93005; 93041; 94760; 96365; 96375; 99291; J2405; J2997

== ENCOUNTER → 2021-06-19 | Outpatient (REF) | payer MEDICARE, OTHER ==
[2021-06-19 13:13] LABS: APPEARANCE, URINE CLEAR (CLEAR); BACTERIA, URINE AUTO NEGATIVE (NEGATIVE); BILIRUBIN, URINE AUTO NEGATIVE (NEGATIVE); BLOOD, URINE BLOOD NEGATIVE (NEGATIVE); COLOR, URINE YELLOW (YELLOW); GLUCOSE, URINE (UA) AUTO NEGATIVE (NEGATIVE); KETONE, URINE AUTO NEGATIVE (NEGATIVE); LEUKOCYTE ESTERASE, URINE AUTO NEGATIVE (NEGATIVE); NITRITE, URINE AUTO NEGATIVE (NEGATIVE); PROTEIN, URINE AUTO NEGATIVE (NEGATIVE); RBC, URINE AUTO 0 /HPF (0-3); SPECIFIC GRAVITY URINE AUTO 1.006 (1.002-1.035); SQUAMOUS EPITHELIAL CELL UR AU 0 /HPF (0-6); UROBILINOGEN, URINE AUTO 0.2 mg/dL (0.0-2.0); WBC, URINE AUTO 0 /HPF (0-3)
== END ==
LOC: M SFHCPLAZ 12:59
PROVIDERS: ATTEND Internal Medicine
DX: R30.0 Dysuria (principal)

== ENCOUNTER → 2021-07-12 | Outpatient (CLI) | payer MEDICARE, OTHER ==
[~2021-07-12] MED LIST changes: +ATOR40TA75; +CLOP75TA2; +COLA100C5 PO; +CYAN100050 PO; +ECOT81TA5 PO; +LOSA100T45 PO; -LOSA100T50 PO; +VITA40TA PO
== END ==
LOC: M LABSMTC 09:54
PROVIDERS: ATTEND Anesthesiology
DX: Z01.812 Encounter for preprocedural laboratory examination (principal); Z20.822 Contact with and (suspected) exposure to COVID-19
CPT/HCPCS: G0463; U0003

== ENCOUNTER 2021-07-17 11:55 | Day surgery (SDC) | payer MEDICARE, OTHER ==
[~2021-07-17] VITALS: Ht 166.6 cm; Wt 75.0 kg
[~2021-07-17 11:55] MED LIST changes: -LOSA100T45 PO; +LOSA100T50 PO; +LR 1,000 ML IV ONE; +ceFAZolin SOD 2 GM in IV 1 EA IV ONE
[2021-07-17] MEDS ORDERED: LIDOCAINE 1% SDV 30ML VIAL As Ordered ONE (13:39)
[2021-07-17] MEDS ORDERED: fentaNYL 100 MCG/2 ML INJECTION (J3010) As Ordered ONE (14:03)
[2021-07-17] MEDS ORDERED: MIDAZOLAM INJ 2MG/2ML VIAL (J2250 PER 1MG) As Ordered ONE (14:03)
[2021-07-17 15:00] VITALS: BP 184/77
--- NOTE | 2021-07-18 07:52 | RO ---
OPERATIVE NOTE DATE OF OPERATION: 07/17/2021 PREOPERATIVE DIAGNOSIS: Unexplained syncope. POSTOPERATIVE DIAGNOSIS: Unexplained syncope. PROCEDURE PERFORMED: Implantation of Medtronic subcutaneous cardiac rhythm monitor. FINDINGS: Unexplained syncope. SURGEON: Jan Garay MD RETAIL INTERIOR DESIGNER: None. ANESTHESIA: Lidocaine 1% local/monitored anesthesia care. No specimen. ESTIMATED BLOOD LOSS: Less than 1 mL. No blood products replaced. No drains. No complications. DESCRIPTION OF PROCEDURE: The patient was prepped and draped over the sternum and left anterior chest. Lidocaine 1% was used for local anesthesia. Incision approximately 1 cm in length was made with #15 blade through the skin at the left 3rd interspace 1 inch lateral to the left parasternal border. The guide on the insertion tool was then placed into the incision and advanced into the subcutaneous fat parallel to the sternum. The insertion tool was rotated 180 degrees. The plunger was then placed into the insertion tool and used to advance the subcutaneous cardiac rhythm monitor into the subcutaneous tissue. The plunger was removed and then the insertion tool was removed leaving the cardiac rhythm monitor in situ. The R amplitude was 0.24 millivolts. A 4-0 Biosyn suture was placed subcuticular to approximate the skin with the free margins protruding 1 cm from both ends of the incision line through the skin. This was used to temporarily approximate the incision line while the Dermabond took effect. Three layers of Dermabond were applied. The Biosyn suture was then pulled through the incision line and removed entirely. The patient tolerated the procedure well without any immediate complications. The subcutaneous cardiac rhythm monitor implanted was Medtronic LINQ II with model #[id number] with serial #[id number]. The initial R amplitude measured 0.24 millivolts.
== END 2021-07-17 15:39 | disposition home or self-care (01) ==
LOC: M SDC 11:55
PROVIDERS: ATTEND Internal Medicine Cardiovascular Disease
DX: R55 Syncope and collapse (principal); I69.328 Other speech and language deficits following cerebral infarction; I10 Essential (primary) hypertension; E78.00 Pure hypercholesterolemia, unspecified; K44.9 Diaphragmatic hernia without obstruction or gangrene; K58.9 Irritable bowel syndrome, unspecified; K21.9 Gastro-esophageal reflux disease without esophagitis; M19.90 Unspecified osteoarthritis, unspecified site; Z88.8 Allergy status to other drugs, medicaments and biological substances; Z88.5 Allergy status to narcotic agent; Z79.899 Other long term (current) drug therapy; Z79.82 Long term (current) use of aspirin; Z79.01 Long term (current) use of anticoagulants
CPT/HCPCS: 33285; C1764; J0690; J2250; J3010

== ENCOUNTER → 2021-07-25 | Outpatient (CLI) | payer MEDICARE, OTHER ==
[~2021-07-25] MED LIST changes: +LOSA100T45 PO; -LOSA100T50 PO; -LR 1,000 ML IV ONE; -ceFAZolin SOD 2 GM in IV 1 EA IV ONE
[2021-07-25 10:52] LABS: ALBUMIN 3.9 GM/DL (3.2-5.2); ALT/SGPT 23 U/L (12-78); BILIRUBIN,TOTAL 0.4 MG/DL (0.2-1.0); BLOOD UREA NITROGEN 19 MG/DL (7-18); CALCIUM LEVEL 9.8 MG/DL (8.8-10.2); CARBON DIOXIDE LEVEL 29 MEQ/L (21-32); CHLORIDE LEVEL 104 MEQ/L (98-107); CHOLESTEROL LEVEL 138 MG/DL (<200); CHOLESTEROL RISK RATIO 2.338 (<5); CREATININE FOR GFR 0.72 MG/DL (0.55-1.30); GLOMERULAR FILTRATION RATE > 60.0 (>32); GLUCOSE, FASTING 95 MG/DL (70-100); HDL CHOLESTEROL 59 MG/DL (>40); LDL CHOLESTEROL 52 MG/DL (<100); MAGNESIUM LEVEL 2.1 MG/DL (1.8-2.4); NON-HDL-C 79 MG/DL; POTASSIUM SERUM 4.2 MEQ/L (3.5-5.1); SODIUM LEVEL 140 MEQ/L (136-145); TOTAL 25(OH) VITAMIN D 35.8 NG/ML (30.0-100.0); TOTAL PROTEIN 6.9 GM/DL (6.4-8.2); TRIGLYCERIDES LEVEL 135 MG/DL (<150)
== END ==
LOC: M LAB 09:24
PROVIDERS: ATTEND Internal Medicine
DX: I10 Essential (primary) hypertension (principal); E78.00 Pure hypercholesterolemia, unspecified; M81.0 Age-related osteoporosis without current pathological fracture

== ENCOUNTER → 2021-12-24 | Outpatient (CLI) | payer MEDICARE, OTHER ==
[2021-12-24 10:37] LABS: BASO # 0.1 10^3/uL (0.0-0.2); BASO % 0.8 % (0.0-1.0); EOS # 0.2 10^3/uL (0.0-0.5); EOS % 3.3 % (0.0-3.0); HEMATOCRIT 39.8 % (36.0-47.0); HEMOGLOBIN 13.1 g/dl (12.0-15.5); LYMPH # 2.2 10^3/uL (1.5-5.0); LYMPH % 36.3 % (24.0-44.0); MEAN CORPUSCULAR HEMOGLOBIN 30.3 pg (27.0-33.0); MEAN CORPUSCULAR HGB CONC 32.9 g/dl (32.0-36.5); MEAN CORPUSCULAR VOLUME 91.9 fl (80.0-96.0); MONO # 0.6 10^3/uL (0.0-0.8); MONO % 10.4 % (2.0-8.0); NEUTROPHILS % 48.7 % (36.0-66.0); PLATELET COUNT, AUTOMATED 266 10^3/uL (150-450); RED BLOOD COUNT 4.33 10^6/uL (4.00-5.40); WHITE BLOOD COUNT 6.2 10^3/uL (4.0-10.0)
[2021-12-24 11:12] LABS: ALBUMIN 3.8 GM/DL (3.2-5.2); ALT/SGPT 22 U/L (12-78); BILIRUBIN,TOTAL 0.5 MG/DL (0.2-1.0); BLOOD UREA NITROGEN 18 MG/DL (7-18); CALCIUM LEVEL 10.3 MG/DL (8.8-10.2); CARBON DIOXIDE LEVEL 27 MEQ/L (21-32); CHLORIDE LEVEL 108 MEQ/L (98-107); CREATININE FOR GFR 0.64 MG/DL (0.55-1.30); GLOMERULAR FILTRATION RATE > 60.0 (>32); GLUCOSE, FASTING 88 MG/DL (70-100); MAGNESIUM LEVEL 2.1 MG/DL (1.8-2.4); POTASSIUM SERUM 4.3 MEQ/L (3.5-5.1); SODIUM LEVEL 142 MEQ/L (136-145); TOTAL PROTEIN 6.9 GM/DL (6.4-8.2)
== END ==
LOC: M LAB 09:53
PROVIDERS: ATTEND Internal Medicine
DX: K21.9 Gastro-esophageal reflux disease without esophagitis (principal); I10 Essential (primary) hypertension

== ENCOUNTER → 2022-01-28 | Outpatient (CLI) | payer MEDICARE, OTHER | LOC: M WHC 10:14 | PROVIDERS: ATTEND Internal Medicine | DX: Z12.31 Encounter for screening mammogram for malignant neoplasm of breast (principal) ==

== ENCOUNTER → 2022-06-03 | Outpatient (CLI) | payer MEDICARE, OTHER ==
[2022-06-03 11:15] LABS: BLOOD UREA NITROGEN 15 MG/DL (9-23); CALCIUM LEVEL 9.8 MG/DL (8.3-10.6); CARBON DIOXIDE LEVEL 28 MMOL/L (20-31); CHLORIDE LEVEL 103 MMOL/L (98-107); CREATININE FOR GFR 0.59 MG/DL (0.55-1.30); GLOMERULAR FILTRATION RATE > 60.0 (>32); GLUCOSE, FASTING 103 MG/DL (74-106); POTASSIUM SERUM 4.3 MMOL/L (3.5-5.1); SODIUM LEVEL 140 MMOL/L (136-145)
== END ==
LOC: M LAB 10:08
PROVIDERS: ATTEND Ophthalmology
DX: H02.423 Myogenic ptosis of bilateral eyelids (principal)

== ENCOUNTER → 2022-06-26 | Outpatient (CLI) | payer MEDICARE, OTHER ==
[2022-06-26 10:02] LABS: CHOLESTEROL RISK RATIO 4.52 (<5); HDL CHOLESTEROL 44.4 MG/DL (>40); LDL CHOLESTEROL 116.6 MG/DL (<100)
== END ==
LOC: M LAB 08:55
PROVIDERS: ATTEND Internal Medicine Cardiovascular Disease
DX: E78.00 Pure hypercholesterolemia, unspecified (principal)

== ENCOUNTER → 2022-08-13 | Outpatient (CLI) | payer MEDICARE, OTHER | LOC: M WHC 08:30 | PROVIDERS: ATTEND Internal Medicine | DX: M85.851 Other specified disorders of bone density and structure, right thigh (principal); M85.852 Other specified disorders of bone density and structure, left thigh; M81.8 Other osteoporosis without current pathological fracture ==

== ENCOUNTER 2022-11-11 17:54 | Emergency (ER) | payer MEDICARE, OTHER ==
[~2022-11-11] VITALS: Ht 165.1 cm; Wt 74.1 kg
[~2022-11-11 17:54] MED LIST changes: -LOSA100T45 PO; +LOSA100T46 PO
[2022-11-11 18:40] LABS: BASO # 0.1 10^3/uL (0.0-0.2); BASO % 0.9 % (0.0-1.0); EOS # 0.1 10^3/uL (0.0-0.5); EOS % 1.3 % (0.0-3.0); HEMATOCRIT 41.9 % (36.0-47.0); HEMOGLOBIN 14.1 g/dl (12.0-15.5); LYMPH # 3.3 10^3/uL (1.5-5.0); LYMPH % 32.5 % (24.0-44.0); MEAN CORPUSCULAR HEMOGLOBIN 29.9 pg (27.0-33.0); MEAN CORPUSCULAR HGB CONC 33.7 g/dl (32.0-36.5); MEAN CORPUSCULAR VOLUME 88.8 fl (80.0-96.0); MONO # 0.8 10^3/uL (0.0-0.8); MONO % 8.1 % (2.0-8.0); NEUTROPHILS # 5.7 10^3/uL (1.5-8.5); NEUTROPHILS % 56.7 % (36.0-66.0); PLATELET COUNT, AUTOMATED 331 10^3/uL (150-450); RED BLOOD COUNT 4.72 10^6/uL (4.00-5.40); WHITE BLOOD COUNT 10.1 10^3/uL (4.0-10.0)
[2022-11-11 18:58] LABS: INR 0.97; PARTIAL THROMBOPLASTIN TIME 31.5 SECONDS (24.8-34.2); PROTHROMBIN TIME 13.1 SECONDS (12.5-14.5)
[2022-11-11 19:10] LABS: FREE T4 0.85 NG/DL (0.89-1.76)
[2022-11-11 19:24] LABS: ALBUMIN 4.2 G/DL (3.2-5.2); ALKALINE PHOSPHATASE 87 U/L (46-116); ALT/SGPT 20 U/L (7.0-40); AST/SGOT 46 U/L (<34); BILIRUBIN,DIRECT 0.1 MG/DL (<0.4); BILIRUBIN,TOTAL 0.7 MG/DL (0.3-1.2); BLOOD UREA NITROGEN 12 MG/DL (9-23); CARBON DIOXIDE LEVEL 24 MMOL/L (20-31); CHLORIDE LEVEL 101 MMOL/L (98-107); CK-MB VALUE MASS 2.2 NG/ML (<3.6); CPK CREATINE PHOSPHOKINASE 138 U/L (34-145); CREATININE FOR GFR 0.59 MG/DL (0.55-1.30); GLOMERULAR FILTRATION RATE > 60.0 (>32); GLUCOSE, FASTING 101 MG/DL (74-106); LIPASE 22 U/L (12-53); MB/CK RELATIVE INDEX 1.59 (< OR =4); POTASSIUM SERUM 4.8 MMOL/L (3.5-5.1); SODIUM LEVEL 133 MMOL/L (136-145); TOTAL PROTEIN 7.3 G/DL (5.7-8.2)
[2022-11-11 19:25] LABS: RSV AMPLIFICATION NEGATIVE (NEGATIVE)
[2022-11-11 20:16] LABS: CK-MB VALUE MASS 2.7 NG/ML (<3.6); MB/CK RELATIVE INDEX 2.34 (< OR =4)
[2022-11-11] MEDS ORDERED: METOPROLOL TART 50 MG TAB PO ONE ×2 (20:35→22:00)
[2022-11-11 22:22] VITALS: BP 142/78
[2022-11-11] MEDS ORDERED: METO100T5 PO (23:17)
[2022-11-11 23:30] VITALS: BP 128/81
== END 2022-11-11 23:45 | disposition home or self-care (01) ==
LOC: M ED 17:54
DX: R07.89 Other chest pain (principal); I48.91 Unspecified atrial fibrillation; I10 Essential (primary) hypertension; E78.5 Hyperlipidemia, unspecified; Z88.8 Allergy status to other drugs, medicaments and biological substances; Z79.899 Other long term (current) drug therapy; Z79.82 Long term (current) use of aspirin

== ENCOUNTER → 2022-12-12 | Outpatient (REF) | payer MEDICARE, OTHER ==
[~2022-12-12] MED LIST changes: +METO100T5 PO
== END ==
LOC: M LAB REF 11:59
PROVIDERS: ATTEND Internal Medicine
DX: N39.0 Urinary tract infection, site not specified (principal)

== ENCOUNTER → 2023-01-21 | Outpatient (REF) | payer MEDICARE, OTHER ==
[~2023-01-21] MED LIST changes: +CYAN-1 PO; -CYAN100050 PO
== END ==
LOC: M LAB REF 16:23
PROVIDERS: ATTEND Internal Medicine
DX: N39.0 Urinary tract infection, site not specified (principal)

== ENCOUNTER → 2023-01-29 | Outpatient (CLI) | payer MEDICARE, OTHER | LOC: M WHC 13:06 | PROVIDERS: ATTEND Internal Medicine | DX: Z12.31 Encounter for screening mammogram for malignant neoplasm of breast (principal) ==

== ENCOUNTER → 2023-03-05 | Outpatient (CLI) | payer MEDICARE, OTHER ==
[2023-03-05 10:17] LABS: BLOOD UREA NITROGEN 19 MG/DL (9-23); CALCIUM LEVEL 9.9 MG/DL (8.3-10.6); CARBON DIOXIDE LEVEL 28 MMOL/L (20-31); CHLORIDE LEVEL 103 MMOL/L (98-107); CREATININE FOR GFR 0.62 MG/DL (0.55-1.30); GLOMERULAR FILTRATION RATE > 60.0 (>32); GLUCOSE, FASTING 97 MG/DL (74-106); POTASSIUM SERUM 4.3 MMOL/L (3.5-5.1); SODIUM LEVEL 139 MMOL/L (136-145)
== END ==
LOC: M LAB 09:07
PROVIDERS: ATTEND Ophthalmology
DX: H02.423 Myogenic ptosis of bilateral eyelids (principal)

== ENCOUNTER 2023-03-15 18:24 | Emergency (ER) | payer MEDICARE, OTHER ==
[~2023-03-15] VITALS: Ht 165.1 cm; Wt 75.1 kg
[2023-03-15] MEDS ORDERED: AMLO1TAB24 (18:40)
[2023-03-15] MEDS ORDERED: NEBI10TA (18:40)
[2023-03-15] MEDS ORDERED: GABA-282 (18:40)
[2023-03-15 19:39] LABS: BASO # 0.1 10^3/uL (0.0-0.2); BASO % 0.6 % (0.0-1.0); EOS # 0.1 10^3/uL (0.0-0.5); EOS % 0.6 % (0.0-3.0); HEMATOCRIT 37.8 % (36.0-47.0); HEMOGLOBIN 12.9 g/dl (12.0-15.5); LYMPH # 2.1 10^3/uL (1.5-5.0); LYMPH % 27.2 % (24.0-44.0); MEAN CORPUSCULAR HEMOGLOBIN 30.4 pg (27.0-33.0); MEAN CORPUSCULAR HGB CONC 34.1 g/dl (32.0-36.5); MEAN CORPUSCULAR VOLUME 89.2 fl (80.0-96.0); MONO # 0.5 10^3/uL (0.0-0.8); NEUTROPHILS # 5.1 10^3/uL (1.5-8.5); NEUTROPHILS % 65.2 % (36.0-66.0); PLATELET COUNT, AUTOMATED 277 10^3/uL (150-450); RED BLOOD COUNT 4.24 10^6/uL (4.00-5.40); WHITE BLOOD COUNT 7.9 10^3/uL (4.0-10.0)
[2023-03-15] MEDS ORDERED: ISOVUE-370 76% 100ML VIAL As Ordered ONE (19:49)
[2023-03-15] MEDS ORDERED: MECLIZINE 25 MG TABLET PO ONE (19:50)
[2023-03-15 20:05] LABS: CK-MB VALUE MASS 2.4 NG/ML (<3.6)
[2023-03-15 20:06] LABS: BLOOD UREA NITROGEN 19 MG/DL (9-23); CALCIUM LEVEL 9.5 MG/DL (8.3-10.6); CARBON DIOXIDE LEVEL 24 MMOL/L (20-31); CHLORIDE LEVEL 101 MMOL/L (98-107); CREATININE FOR GFR 0.54 MG/DL (0.55-1.30); GLOMERULAR FILTRATION RATE > 60.0 (>32); GLUCOSE, FASTING 122 MG/DL (74-106); POTASSIUM SERUM 3.9 MMOL/L (3.5-5.1); SODIUM LEVEL 135 MMOL/L (136-145)
[2023-03-15 20:09] LABS: CPK CREATINE PHOSPHOKINASE 94 U/L (34-145); MB/CK RELATIVE INDEX 2.55 (< OR =4)
[2023-03-15 20:46] LABS: INR 1.06; PROTHROMBIN TIME 13.5 SECONDS (12.5-14.5)
[2023-03-15 20:47] LABS: PARTIAL THROMBOPLASTIN TIME 30.1 SECONDS (24.8-34.2)
[2023-03-15 21:02] LABS: ALBUMIN 4.1 G/DL (3.2-5.2); ALKALINE PHOSPHATASE 77 U/L (46-116); ALT/SGPT 16 U/L (7.0-40); AST/SGOT 19 U/L (<34); BILIRUBIN,DIRECT 0.1 MG/DL (<0.4); BILIRUBIN,TOTAL 0.4 MG/DL (0.3-1.2); TOTAL PROTEIN 6.8 G/DL (5.7-8.2)
[2023-03-15 21:04] LABS: THYROID STIMULATING HORMONE 1.663 uIU/ML (0.55-4.78)
[2023-03-15 21:05] LABS: FREE T4 1.05 NG/DL (0.89-1.76)
[2023-03-15 23:00] VITALS: BP 144/71; TEMP 97.5; O2SAT 95
[2023-03-15] MEDS ORDERED: MECL-209 PO (23:40)
== END 2023-03-15 23:47 | disposition home or self-care (01) ==
LOC: M ED 18:24
DX: R42 Dizziness and giddiness (principal); R09.81 Nasal congestion; I48.91 Unspecified atrial fibrillation; I10 Essential (primary) hypertension; E78.5 Hyperlipidemia, unspecified; Z86.73 Personal history of transient ischemic attack (TIA), and cerebral infarction without residual deficits; Z90.49 Acquired absence of other specified parts of digestive tract; Z79.899 Other long term (current) drug therapy; Z88.5 Allergy status to narcotic agent; Z88.8 Allergy status to other drugs, medicaments and biological substances
CPT/HCPCS: 70450; 70496; 70498; 70551; 71045; 80048; 80076; 81001; 82550; 82553; 84439; 84443; 84484; 85025; 85610; 85730; 87086; 93005; 93041; 94760; 99284; Q9967

== ENCOUNTER → 2023-03-27 | Outpatient (REF) | payer MEDICARE, OTHER ==
[~2023-03-27] MED LIST changes: +AMLO1TAB24; +GABA-282; +MECL-209 PO; +NEBI10TA
[2023-03-27 12:16] LABS: APPEARANCE, URINE CLOUDY (CLEAR); BACTERIA, URINE AUTO NEGATIVE (NEGATIVE); BILIRUBIN, URINE AUTO NEGATIVE (NEGATIVE); BLOOD, URINE BLOOD NEGATIVE (NEGATIVE); COLOR, URINE YELLOW (YELLOW); GLUCOSE, URINE (UA) AUTO NEGATIVE (NEGATIVE); KETONE, URINE AUTO NEGATIVE (NEGATIVE); LEUKOCYTE ESTERASE, URINE AUTO 3+ (NEGATIVE); NITRITE, URINE AUTO NEGATIVE (NEGATIVE); PROTEIN, URINE AUTO NEGATIVE (NEGATIVE); RBC, URINE AUTO 0 /HPF (0-3); SPECIFIC GRAVITY URINE AUTO 1.015 (1.002-1.035); SQUAMOUS EPITHELIAL CELL UR AU 1 /HPF (0-6); UROBILINOGEN, URINE AUTO 0.2 mg/dL (0.0-2.0); WBC, URINE AUTO TNTC /HPF (0-3)
== END ==
LOC: M LAB REF 11:41
PROVIDERS: ATTEND Internal Medicine
DX: R30.0 Dysuria (principal)

== ENCOUNTER → 2023-04-01 | Outpatient (REF) | payer MEDICARE, OTHER | LOC: M LAB REF 17:02 | PROVIDERS: ATTEND Internal Medicine | DX: N39.0 Urinary tract infection, site not specified (principal) ==

== ENCOUNTER → 2023-10-22 | Outpatient (REF) | payer MEDICARE, OTHER ==
[~2023-10-22] MED LIST changes: -HYDR25TA PO; +HYDR25TA88 PO
== END ==
LOC: M LAB REF 11:25
PROVIDERS: ATTEND Internal Medicine
DX: N39.0 Urinary tract infection, site not specified (principal)

== ENCOUNTER → 2024-02-10 | Outpatient (CLI) | payer MEDICARE, OTHER | LOC: M WHC 07:13 | PROVIDERS: ATTEND Internal Medicine | DX: Z12.31 Encounter for screening mammogram for malignant neoplasm of breast (principal) ==

== ENCOUNTER → 2024-03-09 | Outpatient (REF) | payer MEDICARE, OTHER ==
[~2024-03-09] MED LIST changes: -ACIP1TAB PO; -NEBI10TA; +NEBI10TA2; +RABE20TA88 PO
== END ==
LOC: M LAB REF 16:26
PROVIDERS: ATTEND Internal Medicine
DX: N39.0 Urinary tract infection, site not specified (principal)

== ENCOUNTER → 2024-05-06 | Outpatient (CLI) | payer MEDICARE, OTHER ==
[~2024-05-06] MED LIST changes: +GABA-1172; -GABA-282
== END ==
LOC: M WUC 11:19
PROVIDERS: ATTEND Internal Medicine
DX: R05.3 Chronic cough (principal); J98.11 Atelectasis

== ENCOUNTER → 2024-05-26 | Outpatient (REF) | payer MEDICARE, OTHER ==
[~2024-05-26] MED LIST changes: +ACET-907 PO; +BACT800T5 PO; +NASA1SPR NARES; +NITR100C2; +ONDA-282 PO
== END ==
LOC: M LAB REF 16:23
PROVIDERS: ATTEND Internal Medicine
DX: R30.0 Dysuria (principal)

== ENCOUNTER 2024-05-27 16:09 | Emergency (ER) | payer MEDICARE, OTHER ==
[~2024-05-27] VITALS: Ht 165.1 cm; Wt 71.8 kg
[~2024-05-27 16:09] MED LIST changes: -ACET-907 PO; -BACT800T5 PO; -NASA1SPR NARES; -NITR100C2; -ONDA-282 PO
[2024-05-27] MEDS ORDERED: ACET-907 PO (17:02)
[2024-05-27] MEDS ORDERED: NASA1SPR NARES (17:07)
[2024-05-27] MEDS ORDERED: NITR100C2 (17:07)
[2024-05-27] MEDS: ONDANSETRON 4MG 2ML VIAL IV ONE (18:14)
[2024-05-27 18:18] LABS: BASO # 0.1 10^3/uL (0.0-0.2); BASO % 0.8 % (0.0-1.0); EOS # 0.1 10^3/uL (0.0-0.5); EOS % 0.8 % (0.0-3.0); HEMATOCRIT 39.1 % (36.0-47.0); HEMOGLOBIN 13.4 g/dl (12.0-15.5); LYMPH # 1.6 10^3/uL (1.5-5.0); MEAN CORPUSCULAR HEMOGLOBIN 30.7 pg (27.0-33.0); MEAN CORPUSCULAR HGB CONC 34.3 g/dl (32.0-36.5); MEAN CORPUSCULAR VOLUME 89.5 fl (80.0-96.0); MONO # 0.5 10^3/uL (0.0-0.8); MONO % 6.3 % (2.0-8.0); NEUTROPHILS % 69.4 % (36.0-66.0); PLATELET COUNT, AUTOMATED 282 10^3/uL (150-450); RED BLOOD COUNT 4.37 10^6/uL (4.00-5.40); WHITE BLOOD COUNT 7.3 10^3/uL (4.0-10.0)
[2024-05-27 18:27] LABS: ALBUMIN 3.9 G/DL (3.2-5.2); ALKALINE PHOSPHATASE 80 U/L (35-104); ALT/SGPT 13 U/L (7.0-40); AST/SGOT 18 U/L (<34); BILIRUBIN,TOTAL 0.7 MG/DL (0.3-1.2); BLOOD UREA NITROGEN 11 MG/DL (9-23); CARBON DIOXIDE LEVEL 25 MMOL/L (20-31); CHLORIDE LEVEL 99 MMOL/L (98-107); CREATININE FOR GFR 0.47 MG/DL (0.55-1.30); GLOMERULAR FILTRATION RATE > 60.0 (>32); GLUCOSE, FASTING 109 MG/DL (74-106); POTASSIUM SERUM 3.7 MMOL/L (3.5-5.1); SODIUM LEVEL 132 MMOL/L (136-145); TOTAL PROTEIN 7.5 G/DL (5.7-8.2)
[2024-05-27 18:37] LABS: ERYTHROCYTE SEDIMENTATION RATE 19 mm/hr (0-30)
[2024-05-27] MEDS ORDERED: ONDA-282 PO (20:05)
[2024-05-27] MEDS ORDERED: BACT800T5 PO (20:05)
[2024-05-27] MEDS: MECLIZINE 25 MG TABLET PO ONE (20:10)
[2024-05-27] MEDS: BACTRIM 160MG/800MG DS TAB PO ONE (20:10)
[2024-05-27 20:18] VITALS: BP 143/65; TEMP 97; O2SAT 97
== END 2024-05-27 20:23 | disposition home or self-care (01) ==
LOC: M ED 16:09
DX: N39.0 Urinary tract infection, site not specified (principal); R42 Dizziness and giddiness; R11.2 Nausea with vomiting, unspecified; I48.91 Unspecified atrial fibrillation; I10 Essential (primary) hypertension; K21.9 Gastro-esophageal reflux disease without esophagitis; E78.5 Hyperlipidemia, unspecified; M54.50 Low back pain, unspecified; Z88.5 Allergy status to narcotic agent; Z88.8 Allergy status to other drugs, medicaments and biological substances; Z79.1 Long term (current) use of non-steroidal anti-inflammatories (NSAID); Z79.899 Other long term (current) drug therapy
CPT/HCPCS: 80053; 81001; 85025; 85652; 96374; 99284; J2405

== ENCOUNTER → 2024-08-10 | Outpatient (REF) | payer MEDICARE, OTHER ==
[~2024-08-10] MED LIST changes: +ACET-907 PO; +BACT800T5 PO; +NASA1SPR NARES; +NITR100C2; +ONDA-282 PO
== END ==
LOC: M LAB REF 16:11
PROVIDERS: ATTEND Nurse Practitioner Adult Health
DX: N39.0 Urinary tract infection, site not specified (principal)

== ENCOUNTER → 2024-09-01 | Outpatient (REF) | payer MEDICARE, OTHER | LOC: M LAB REF 16:09 | PROVIDERS: ATTEND Nurse Practitioner Adult Health | DX: N39.0 Urinary tract infection, site not specified (principal) ==

== ENCOUNTER → 2024-10-21 | Outpatient (REF) | payer MEDICARE, OTHER ==
[2024-10-21 15:52] LABS: APPEARANCE, URINE CLEAR (CLEAR); BACTERIA, URINE AUTO NEGATIVE (NEGATIVE); BILIRUBIN, URINE AUTO NEGATIVE (NEGATIVE); BLOOD, URINE BLOOD NEGATIVE (NEGATIVE); COLOR, URINE YELLOW (YELLOW); GLUCOSE, URINE (UA) AUTO NEGATIVE (NEGATIVE); KETONE, URINE AUTO NEGATIVE (NEGATIVE); LEUKOCYTE ESTERASE, URINE AUTO NEGATIVE (NEGATIVE); MUCUS, URINE SMALL (NEGATIVE); NITRITE, URINE AUTO NEGATIVE (NEGATIVE); PROTEIN, URINE AUTO NEGATIVE (NEGATIVE); RBC, URINE AUTO 0 /HPF (0-3); SPECIFIC GRAVITY URINE AUTO 1.016 (1.002-1.035); SQUAMOUS EPITHELIAL CELL UR AU 0 /HPF (0-6); UROBILINOGEN, URINE AUTO 0.2 mg/dL (0.0-2.0); WBC, URINE AUTO 0 /HPF (0-3)
== END ==
LOC: M SMT 15:14
PROVIDERS: ATTEND Physician Assistant
DX: R39.9 Unspecified symptoms and signs involving the genitourinary system (principal)

== ENCOUNTER → 2025-01-21 | Outpatient (REF) | payer MEDICARE, OTHER | LOC: M LAB REF 17:01 | PROVIDERS: ATTEND Physician Assistant | DX: R30.0 Dysuria (principal) ==

== ENCOUNTER → 2025-02-14 | Outpatient (REF) | payer MEDICARE, OTHER ==
[2025-02-14 17:26] LABS: APPEARANCE, URINE CLOUDY (CLEAR); BACTERIA, URINE AUTO 1+ (NEGATIVE); BILIRUBIN, URINE AUTO NEGATIVE (NEGATIVE); BLOOD, URINE BLOOD 1+ (NEGATIVE); GLUCOSE, URINE (UA) AUTO NEGATIVE (NEGATIVE); KETONE, URINE AUTO NEGATIVE (NEGATIVE); LEUKOCYTE ESTERASE, URINE AUTO 3+ (NEGATIVE); NITRITE, URINE AUTO POSITIVE (NEGATIVE); PROTEIN, URINE AUTO NEGATIVE (NEGATIVE); RBC, URINE AUTO 19 /HPF (0-3); SPECIFIC GRAVITY URINE AUTO 1.012 (1.002-1.035); SQUAMOUS EPITHELIAL CELL UR AU 0 /HPF (0-6); TRANSITIONAL EPITHELIAL AUTO 1 /HPF; UROBILINOGEN, URINE AUTO 0.2 mg/dL (0.0-2.0); WBC, URINE AUTO TNTC /HPF (0-3)
== END ==
LOC: M LABSMT 13:18
PROVIDERS: ATTEND Physician Assistant
DX: R39.9 Unspecified symptoms and signs involving the genitourinary system (principal)

== ENCOUNTER → 2025-05-12 | Outpatient (CLI) | payer MEDICARE, OTHER | LOC: M WHC 14:13 | PROVIDERS: ATTEND Internal Medicine | DX: Z12.31 Encounter for screening mammogram for malignant neoplasm of breast (principal); M81.0 Age-related osteoporosis without current pathological fracture ==

== ENCOUNTER → 2025-06-01 | Outpatient (REF) | payer MEDICARE, OTHER ==
[2025-06-01 15:19] LABS: APPEARANCE, URINE CLEAR (CLEAR); BACTERIA, URINE AUTO NEGATIVE (NEGATIVE); BILIRUBIN, URINE AUTO NEGATIVE (NEGATIVE); BLOOD, URINE BLOOD NEGATIVE (NEGATIVE); GLUCOSE, URINE (UA) AUTO NEGATIVE (NEGATIVE); KETONE, URINE AUTO NEGATIVE (NEGATIVE); LEUKOCYTE ESTERASE, URINE AUTO NEGATIVE (NEGATIVE); MUCUS, URINE SMALL (NEGATIVE); NITRITE, URINE AUTO NEGATIVE (NEGATIVE); PROTEIN, URINE AUTO NEGATIVE (NEGATIVE); RBC, URINE AUTO 1 /HPF (0-3); SPECIFIC GRAVITY URINE AUTO 1.012 (1.002-1.035); SQUAMOUS EPITHELIAL CELL UR AU 0 /HPF (0-6); UROBILINOGEN, URINE AUTO 0.2 mg/dL (0.0-2.0); WBC, URINE AUTO 1 /HPF (0-3)
== END ==
LOC: M SMT 14:57
PROVIDERS: ATTEND Physician Assistant
DX: R39.9 Unspecified symptoms and signs involving the genitourinary system (principal)

== ENCOUNTER → 2025-07-04 | Outpatient (REF) | payer MEDICARE, OTHER ==
[2025-07-08 07:53] LABS: BORRELIA SPECIES DNA NOT DETECTED (NOT DETECT)
[2025-07-08 20:57] LABS: LYME TOTAL ANTIBODY CIA <= 0.90 Index (<=0.90)
== END ==
LOC: M LAB REF 12:05
DX: R53.83 Other fatigue (principal)